=== PATIENT | male | born 1970 | race Caucasian/White ===

== ENCOUNTER 2023-02-06 17:09 | Emergency (ER) | payer MEDICAID, SELFPAY ==
[2023-02-06 17:21] VITALS: BP 125/75; PULSE 78; RESP 20; TEMP 36.6; O2SAT 99; BMI 27.0
--- NOTE | 2023-02-06 17:36 | US_ITS ---
The [address] [address] Patient Name: MYA CALDWELL MRN: [id number] date: 1970 Sex: M Assigned Patient Location: ER Current Patient Location: Accession/Order Number: [id number] Exam Date: 02/06/2023 17:37 Report Date: 02/06/2023 20:42 At the request of: DAYAN HARMON Procedure: US venous doppler LE LT EXAMINATION: US venous doppler LE LT HISTORY: pain, swelling, hx dvt COMPARISON: No relevant comparison available. FINDINGS: REGION: Left lower extremity THROMBI: Nonocclusive thrombus within mid femoral vein. Occlusive thrombus within mid and distal great saphenous vein extending to the foot. COMPRESSIBILITY: Noncompressible segments. FLOW: Areas of decreased flow. OTHER: None. US/US venous doppler LE LT IMPRESSION: 1. Nonocclusive deep vein thrombus within left mid femoral vein. 2. Thrombus within superficial great saphenous vein. Preliminary findings were provided to the emergency department at time of imaging. Electronically authenticated by: BROOKLYNN DIXON Date: 02/06/2023 20:42
[2023-02-06 18:40] LABS: Basophils Absolute Auto 0.1 10^3/uL (0.0-0.1); Basophils Percent Auto 0.5 % (0.2-2.0); Eosinophils Absolute Auto 0.2 10^3/uL (0.0-0.7); Eosinophils Percent Auto 2.2 % (0.9-7.0); Hematocrit 36.7 % (42.0-54.0); Hemoglobin 11.2 g/dL (14.0-18.0); Immature Granulocytes Abs Auto 0.03 10^3/uL (0.00-0.03); Immature Granulocytes Pct Auto 0.3 % (0.0-0.5); Lymphocytes Percent Auto 19.5 % (20.5-60.0); Mean Corpuscular HGB Conc 30.5 g/dL (29.9-35.2); Mean Corpuscular Volume 75.5 fL (80.0-94.0); Mean Platelet Volume 11.7 fL (9.5-13.5); Monocytes Absolute Auto 1.3 10^3/uL (0.3-0.8); Monocytes Percent Auto 12.5 % (1.7-12.0); Neutrophils Absolute Auto 6.5 10^3/uL (1.4-6.5); Platelet Count 253 10^3/uL (150-450); Red Blood Count 4.86 10^6/uL (4.70-6.10); Red Cell Distribution Width 17.9 % (11.0-15.0)
[2023-02-06 18:48] LABS: Anion Gap 9.3; BUN Creatinine Ratio 10.5; Calcium 8.3 mg/dL (8.5-10.1); Carbon Dioxide 27.5 mmol/L (21.0-32.0); Chloride 108 mmol/L (98-107); Estimated GFR (African America >60 (>=60); Estimated GFR (Non-African Ame >60 (>=60); Glucose 110 mg/dL (74-106); Potassium 3.8 mmol/L (3.5-5.1); Sodium 141 mmol/L (136-145)
--- NOTE | 2023-02-06 19:56 | ED_ITS ---
HPI - Extremity Injury (Lower) General Chief Complaint: Extremity Injury, Lower Stated Complaint: blood clot Time Seen by Provider: 02/06/23 17:36 Source: patient Mode of arrival: walk-in Limitations: no limitations History of Present Illness HPI Narrative: past history of recurrent DVTs and past PE. States released from [facility] over a month ago and has not taken coumadin. He was receiving coumadin and Lovenox while in intermediate. He is concerned because his legs are swollen. L>R. No dyspnea or chest pain or light headiness. No nausea or tachycardia. States he has an appointment with his PCP in 3 days Related Data Home Medications Medication Instructions Recorded Confirmed buprenorphine 8 mg-naloxone 2 mg 1 film sublingual Q24H 02/06/23 02/06/23 sublingual film Allergies Allergy/AdvReac Type Severity Reaction Status Date / Time No Known Drug Allergies Allergy Verified 02/06/23 17:20 Review of Systems ROS Status of ROS 10 or more systems reviewed and unremarkable except as noted in history and below PFSH PFS Social History Smoking status: Heavy tobacco smoker Exam Constitutional Vital Signs, click to edit/add: Last Vital Signs Temp 97.8 F 02/06/23 17:21 Pulse 78 02/06/23 17:21 Resp 20 02/06/23 17:21 BP 125/75 H 02/06/23 17:21 Pulse Ox 99 02/06/23 17:21 O2 Del Method Room Air 02/06/23 17:21 Common normals: no apparent distress, oriented x3, no limitations and healthy appearing HENMI Common normals: normocephalic and head/scalp atraumatic Eye Common normals: PERRL, EOMs intact bilaterally and conjunctivae normal Respiratory Common normals: normal respiratory effort, no retractions, no use of accessory muscles and clear to auscultation bilaterally Cardio Common normals: regular rate, regular rhythm, S1 normal heart sound and S2 normal heart sound GI Common normals: Normal to inspection, nondistended, normoactive bowel sounds present, soft to palpation and non-tender Extremity Other: nonpitting edema bilat lower ext. L>R Neuro Common normals: oriented x3, CN's II-XII intact bilaterally, moves all extremities, no focal motor deficits and no sensory deficits noted Psych Appearance: grossly normal Course Vital Signs Vital signs: Vital Signs Temperature 97.8 F 02/06/23 17:21 Pulse Rate 78 02/06/23 17:21 Respiratory Rate 20 02/06/23 17:21 Blood Pressure 125/75 H 02/06/23 17:21 Pulse Oximetry 99 02/06/23 17:21 Oxygen Delivery Method Room Air 02/06/23 17:21 Temperature 97.8 F 02/06/23 17:21 Pulse Rate 78 02/06/23 17:21 Respiratory Rate 20 02/06/23 17:21 Blood Pressure 125/75 H 02/06/23 17:21 Pulse Oximetry 99 02/06/23 17:21 Oxygen Delivery Method Room Air 02/06/23 17:21 MDM - Extremity Injury (Lower) MDM Narrative Medical decision making narrative: patient with past history of recurrent DVTs and past PEs. Has been non compliant with coumadin since leaving [facility] over a month ago. Now presents with worsening swelling of his legs. trace swelling RLE and 1+ swelling LLE. No chest pain or shortness of breath. Venous doppler with non occlusive DVT mid Left femoral vein and non occlusive superficial thrombus within the great saphenous vein. Patient treated with lovenox in the department and coumadin. Discharged home with both and will see his PCP in 3-4 days to manage his anti coagulants. Patient is comfortable with the plan. labs reveal chronic anemia. Patient admits to past history of the same Lab Data Labs: Lab Results 02/06/23 Range/Units 18:27 WBC 10.0 (4.0-11.0) 10^3/uL RBC 4.86 (4.70-6.10) 10^6/uL Hgb 11.2 L (14.0-18.0) g/dL Hct 36.7 L (42.0-54.0) % MCV 75.5 L (80.0-94.0) fL MCH 23.0 L (25.9-34.0) pg MCHC 30.5 (29.9-35.2) g/dL RDW 17.9 H (11.0-15.0) % Plt Count 253 (150-450) 10^3/uL MPV 11.7 (9.5-13.5) fL Neut % (Auto) 65.0 (43.0-75.0) % Lymph % (Auto) 19.5 L (20.5-60.0) % [place] % (Auto) 12.5 H (1.7-12.0) % Eos % (Auto) 2.2 (0.9-7.0) % Baso % (Auto) 0.5 (0.2-2.0) % Neut # (Auto) 6.5 (1.4-6.5) 10^3/uL Lymph # (Auto) 2.0 (1.2-3.8) 10^3/uL [place] # (Auto) 1.3 H (0.3-0.8) 10^3/uL Eos # (Auto) 0.2 (0.0-0.7) 10^3/uL Baso # (Auto) 0.1 (0.0-0.1) 10^3/uL Abs Immat Gran (auto) 0.03 (0.00-0.03) 10^3/uL Imm/Tot Granulo (auto) 0.3 (0.0-0.5) % Sodium 141 (136-145) mmol/L Potassium 3.8 (3.5-5.1) mmol/L Chloride 108 H (98-107) mmol/L Carbon Dioxide 27.5 (21.0-32.0) mmol/L Anion Gap 9.3 BUN 9.0 (7.0-18.0) mg/dL Creatinine 0.86 (0.70-1.30) mg/dL Est GFR ( Amer) >60 (>=60) Est GFR (Non-Af Amer) >60 (>=60) BUN/Creatinine Ratio 10.5 Glucose 110 H (74-106) mg/dL Calcium 8.3 L (8.5-10.1) mg/dL Discharge Plan Discharge Chief Complaint: Extremity Injury, Lower Clinical Impression: Chronic deep vein thrombosis (DVT) of both lower extremities, Chronic anemia Prescriptions / Home Meds: No Action buprenorphine-naloxone 8-2 mg film 1 film sublingual Q24H Instructions: Deep Vein Thrombosis (ED) Additional Instructions: follow up with your doctor Thursday as planned Stand Alone Forms: Portal Instructions Referrals: Physician,Non-Staff, MD [Primary Care Provider] - 1 week
[2023-02-06 20:18] VITALS: RESP 16
[2023-02-06] MEDS: ENOXAPARIN SODIUM 100 MG/ML SYRINGE 150 MG SUBQ (20:24)
[2023-02-06] MEDS: WARFARIN SODIUM 5 MG TABLET PO (20:24)
[2023-02-06 20:27] VITALS: BP 143/92; PULSE 55; RESP 16; O2SAT 100
== END 2023-02-06 20:33 | disposition home or self-care (01) ==
PROVIDERS: Emergency Medicine; Emergency Provider Internal Medicine
DX: I82.512 Chronic embolism and thrombosis of left femoral vein (principal); I82.812 Embolism and thrombosis of superficial veins of left lower extremity; Z91.148 Patient's other noncompliance with medication regimen for other reason; Z86.711 Personal history of pulmonary embolism; Z79.899 Other long term (current) drug therapy; F17.210 Nicotine dependence, cigarettes, uncomplicated; D64.9 Anemia, unspecified
CPT/HCPCS: 36415; 80048; 85025; 85610; 85730; 93971; 96372; 99284

== ENCOUNTER 2023-05-07 16:38 | Emergency (ER) | payer MEDICAID, SELFPAY ==
[2023-05-07 16:52] VITALS: BP 137/78; PULSE 60; RESP 18; TEMP 36.7; O2SAT 98; BMI 24.9
--- NOTE | 2023-05-07 16:59 | US_ITS ---
The [address] [address] Patient Name: MYA CALDWELL MRN: [id number] date: 1970 Sex: M Assigned Patient Location: ER Current Patient Location: ER Accession/Order Number: [id number] Exam Date: 05/07/2023 17:30 Report Date: 05/07/2023 18:58 At the request of: RUDOLPH JAY Procedure: US venous doppler LE RT Right EXAM: US venous doppler LE RT HISTORY: pain, swelling, history of deep vein thrombosis COMPARISON: None. TECHNIQUE: Evaluation of the deep veins of the right lower extremity was performed utilizing B-mode, color flow and spectral analysis. FINDINGS: The visualized vessels comprising the deep venous systems from the common femoral vein through the calf veins demonstrate appropriate compressibility, spontaneous color Doppler flow, and augmentation of flow on spectral Doppler with distal compression. There is mid superficial saphenous vein thrombus in the posterior cough, representing thrombophlebitis. Additional findings: None. US/US venous doppler LE RT IMPRESSION: No sonographic evidence of deep venous thrombosis of the right lower extremity. Mid superficial saphenous vein thrombus in the posterior cough, representing thrombophlebitis. Electronically authenticated by: TOPHER OLMOS Date: 05/07/2023 18:58
--- NOTE | 2023-05-07 17:06 | ED.GENADUL1 ---
HPI - General Adult General Chief complaint: Extremity Injury, Lower Stated complaint: lower extremity pain Time Seen by Provider: 05/07/23 16:52 Source: patient Mode of arrival: walk-in History of Present Illness HPI narrative: 52-year-old male presents for right calf pain and swelling. He is worried about a blood clot. He has a history of deep vein thromboses and he's been taking his Coumadin every other day to make it stretch. No chest pain or shortness breath. He's ready certain that he has a new deep vein thrombosis. Symptoms present for the past few days. Related Data Home Medications Medication Instructions Recorded Confirmed buprenorphine 8 mg-naloxone 2 mg 1 film sublingual Q24H 02/06/23 02/06/23 sublingual film Previous Rx's Medication Instructions Recorded warfarin 5 mg tablet 5 mg PO DAILY #30 tabs 05/07/23 Allergies Allergy/AdvReac Type Severity Reaction Status Date / Time No Known Drug Allergies Allergy Verified 02/06/23 17:20 Review of Systems ROS Narrative A ten point review of systems is negative except as noted above. PFSH PFSH Social History Smoking status: Heavy tobacco smoker Exam Narrative Exam Narrative: Nurses note and vital signs reviewed and patient is not hypoxic. General: The patient appears well and in no apparent distress. Patient is resting comfortably on cart. Skin: Warm, dry, no pallor noted. There is no rash noted. Head: Normocephalic, atraumatic Eye: Normal conjunctiva, no drainage Ears, Nose, Mouth, and Throat: oral mucosa is moist. Nares patent. Cardiovascular: Regular Rate and Rhythm Respiratory: Patient is in no distress, no accessory muscle use, lungs are clear to auscultation, no wheezing, rales or rhonchi Back: non-tender GI: soft and nontender Musculoskeletal: he has swelling in the right calf with palpable mass. Neurological: A&O, normal speech Psychiatric: Cooperative Constitutional Vital Signs, click to edit/add: Last Vital Signs Temp 98.0 F 05/07/23 16:52 Pulse 60 05/07/23 16:52 Resp 18 05/07/23 16:52 BP 137/78 05/07/23 16:52 Pulse Ox 98 05/07/23 16:52 O2 Del Method Room Air 05/07/23 16:52 Course Vital Signs Vital signs: Vital Signs Temperature 98.0 F 05/07/23 16:52 Pulse Rate 60 05/07/23 16:52 Respiratory Rate 18 05/07/23 16:52 Blood Pressure 137/78 05/07/23 16:52 Pulse Oximetry 98 05/07/23 16:52 Oxygen Delivery Method Room Air 05/07/23 16:52 Temperature 98.0 F 05/07/23 16:52 Pulse Rate 60 05/07/23 16:52 Respiratory Rate 18 05/07/23 16:52 Blood Pressure 137/78 05/07/23 16:52 Pulse Oximetry 98 05/07/23 16:52 Oxygen Delivery Method Room Air 05/07/23 16:52 Medical Decision Making MDM Narrative Medical decision making narrative: Superficial thrombophlebitis is identified on the ultrasound. He is prescribed Coumadin and was given referral to PCP. The importance of follow-up was discussed thoroughly. Treatment diagnosis and follow-up were discussed with the patient. Differential Diagnosis Differential Diagnosis: deep vein thrombosis, superficial thrombophlebitis. Discharge Plan Discharge Chief Complaint: Extremity Injury, Lower Clinical Impression: Superficial thrombophlebitis Patient Disposition: Home, Self-Care Time of Disposition Decision: 17:52 Condition: Good Mode of Transportation: Private Vehicle Prescriptions / Home Meds: New warfarin 5 mg tablet 5 mg PO DAILY Qty: 30 0RF No Action buprenorphine-naloxone 8-2 mg film 1 film sublingual Q24H Instructions: Superficial Thrombophlebitis (ED) Stand Alone Forms: Portal Instructions Referrals: Physician,Non-Staff, MD [Primary Care Provider] - 1 week
== END 2023-05-07 18:06 | disposition home or self-care (01) ==
PROVIDERS: Emergency Provider Emergency Medicine
DX: I80.01 Phlebitis and thrombophlebitis of superficial vessels of right lower extremity (principal); Z86.718 Personal history of other venous thrombosis and embolism; Z79.01 Long term (current) use of anticoagulants; Z79.899 Other long term (current) drug therapy; F17.210 Nicotine dependence, cigarettes, uncomplicated
CPT/HCPCS: 93971; 99284

== ENCOUNTER 2023-05-19 15:36 | Outpatient (RCR) | payer MEDICAID, SELFPAY | END 2023-05-26 17:49 | disposition home or self-care (01) | LOC: MM 15:36 | PROVIDERS: Visit Provider Internal Medicine | DX: Z51.81 Encounter for therapeutic drug level monitoring (principal); Z79.01 Long term (current) use of anticoagulants; I26.99 Other pulmonary embolism without acute cor pulmonale | CPT/HCPCS: 85610; G0463 ==

== ENCOUNTER 2023-05-27 00:36 | Outpatient (RCR) | payer MEDICARE, SELFPAY | END 2023-06-25 16:54 | disposition home or self-care (01) | LOC: MM 00:36 | PROVIDERS: PCP Nurse Practitioner Family; Visit Provider Internal Medicine | DX: Z51.81 Encounter for therapeutic drug level monitoring (principal); Z79.01 Long term (current) use of anticoagulants; I82.409 Acute embolism and thrombosis of unspecified deep veins of unspecified lower extremity; Z86.711 Personal history of pulmonary embolism ==

== ENCOUNTER 2023-06-26 09:03 | Outpatient (RCR) | payer MEDICARE, SELFPAY | END 2023-07-24 15:22 | disposition home or self-care (01) | LOC: MM 09:03 | PROVIDERS: PCP Nurse Practitioner Family; Visit Provider Internal Medicine | DX: Z51.81 Encounter for therapeutic drug level monitoring (principal); Z79.01 Long term (current) use of anticoagulants; I82.409 Acute embolism and thrombosis of unspecified deep veins of unspecified lower extremity; I26.99 Other pulmonary embolism without acute cor pulmonale ==

== ENCOUNTER 2023-07-27 00:47 | Outpatient (RCR) | payer MEDICAID, SELFPAY | END 2023-08-26 15:58 | disposition home or self-care (01) | LOC: MM 00:47 | PROVIDERS: PCP Nurse Practitioner Family; Visit Provider Internal Medicine | DX: Z51.81 Encounter for therapeutic drug level monitoring (principal); Z79.01 Long term (current) use of anticoagulants; Z86.711 Personal history of pulmonary embolism | CPT/HCPCS: 85610; G0463 ==

== ENCOUNTER 2023-08-17 16:33 | Outpatient (OUT) | payer MEDICAID, SELFPAY ==
--- OUTSIDE RECORDS SUMMARY | 2023-08-17 16:36 | XMS_ITS | CCD ---
Author Name Unknown Address [address] # [place] [address] Organization [facility] Care Team Providers Care Gi Technician Name Role Phone FABI BRAYAN Unavailable Unavailable FABI PETER Unavailable Unavailable ZELALEM HERNANDEZ Unavailable Unavailable BRAYAN DUNLAP Unavailable Unavailable DO Anam Gnosticism Referring Provider [phone] MD Sofie Sparks Attending Provider [phone] [facility] Primary Care Provider John Peguero Unavailable Nacny Rose Unavailable [facility] Primary Care Provider [facility] Referring Provider SUKHWINDER Hernandez Attending Provider Mast, DO Kasi Attending Provider DO Jeremiah Mendieta Referring Provider [phone] [facility] Primary Care Provider [phone] MD Jose Zavala Jr Emergency Provider None, None Primary Care Provider Unavailabl e SEARS, CHRISTOPHER D Referring Unavailable NONE, NONE Primary Care Unavailable SEARS, CHRISTOPHER D Referring Unavailable NONE, NONE Primary Care Unavailable SEARS, CHRISTOPHER D Referring Unavailable NONE, NONE Primary Care Unavailable SEARS, CHRISTOPHER D Referring Unavailable NONE, NONE Primary Care Unavailable SEARS, CHRISTOPHER D Referring Unavailable NONE, NONE Primary Care Unavailable SEARS, CHRISTOPHER D Referring Unavailable NONE, NONE Primary Care Unavailable Mast, Kasi Attending Unavailable Mast, Kasi Admitting Unavailable Stanley Garcia Primary Care Unavailable [facility] Primary Care Unavaila ble Mast, Kasi Admitting Unavailable Jeremiah Mendieta Referring Unavailable Mast, Kasi Attending Unavailable [facility] Primary Care Unavaila Yesi Hutchison Attending Unavail able Yesi Hernandez Admitting Unavail able [facility] Referring Unavaila ble [facility] Primary Care Unavaila Jose Martinez Jr Attending Unavailable Jose Zavala Jr Admitting Unavailable Sofie Sparks Attending Unavailable [facility] Primary Care Unavaila praveena Sofie Sparks Admitting Unavailable Jeremiah Mendieta Referring Unavailable Erica Montaño Unavailable Allergies Allergy Classification Reported Allergen(s) Allergy Type Date of Onset Reaction(s) Facility (1 source) buPROPion Drug Allergy 08-12-2022 [facility] Repository Medications Current Medications Medication Drug Class(es) Dates Sig (Normalized) Sig (Original) apixaban 5 mg oral tablet (2 sources) Factor Xa Inhibitor Start: 08-12-2022 take 1 tablet by mouth twice daily Apixaban (Eliquis) 5 mg Tablet Active 5 MG PO Twice daily August 12, 2022 1:00am aspirin 81 mg oral tablet (3 sources) Platelet Aggregation Inhibitor, Nonsteroidal Anti-inflammatory Drug take 1 tablet by mouth once daily aspirin 81 MG tablet Take 81 mg by mouth daily. 0 Active buprenorphine 8 mg / naloxone 2 mg sublingual film (7 sources) Partial Opioid Agonist, Opioid Antagonist Start: 05-23-2021 Buprenorphine-Na loxone Active 1.25 FILM SUBLINGUAL Daily May 23, 2021 12:00am Buprenorphine HC l-Naloxone HCl 8-2 MG DISSOLVE 1 (ONE) and ONE-HALF film UNDER THE TONGUE DAILY Sublingual for 28 Days Active Buprenorphine HCl-Naloxone HCl 8-2 MG (2 sources) Buprenorphine HCl-Naloxone HCl 8-2 MG DISSOLVE 1 (ONE) and ONE-HALF film UNDER THE TONGUE DAILY Sublingual for 28 Days Active 24 hr buPROPion hydrochloride 150 mg extended release oral tablet (2 sources) Aminoketone take 1 tablet by mouth once daily in the morning buPROPion HCl ER (XL) 150 MG TAKE 1 TABLET BY MOUTH EVERY MORNING Oral for 30 Days Active Compression stockings, 30-40mmHg, calf 30-40mmHg (2 sources) Compression stockings, 30-40mmHg, calf 30-40mmHg externally daily as directed for 3 days Active escitalopram 20 mg oral tablet (8 sources) Serotonin Reuptake Inhibitor Start: 08-11-19 23 take 1 tablet by mouth once daily Escitalopram Oxalate (Lexapro) 20 mg Tablet Active 20 MG PO Daily August 11, 2022 1:00am furosemide 20 mg oral tablet (7 sources) Loop Diuretic Start: 05-23-20 21 take 20 mg by mouth once daily Furosemide Active 20 MG PO Daily May 23, 2021 12:00am take 1 tablet by mouth once alisson y Furosemide 40 MG TAKE 1 TABLET BY MOUTH EVERY DAY Oral for 30 Days Active gabapentin 600 mg oral tablet (9 sources) Anti-epileptic Agent Start: 05-23-2021 take 800 mg by mouth three times daily Gabapentin Active 800 MG PO Three times daily May 23, 2021 12:00am Start: 05-23-2021 take 600 mg by mouth three times daily Gabapentin Active 600 MG PO Three times daily May 22, 2021 11:00pm take 1 tablet by toshia th three times daily Gabapentin 800 MG TAKE 1 TABLET BY MOUTH THREE TIMES DAILY Oral for 30 days Active levothyroxine sodium 0.05 mg oral tablet (8 sources) l-Thyroxine Start: 08-11-2022 take 50 ug by mouth once daily Levothyroxine Active 50 MCG PO Daily August 11, 2022 1:00am take 1 tablet by toshia th once daily in the morning Levothyroxine Sodium 50 MCG TAKE 1 TABLE T BY MOUTH IN THE MORNING ON AN EMPTY STOMACH DAILY Oral for 30 days Active lisinopril 10 mg oral tablet (9 sources) Angiotensin Converting Enzyme Inhibitor Start: 05-23-2021 take 20 mg by mouth once daily Lisinopril Active 20 MG PO Daily May 23, 2021 12:00am Start: 05-23-2021 take 10 mg by mouth once daily Lisinopril Active 10 MG PO Daily May 22, 2021 11:00pm take 1 tablet by toshia th once daily Lisinopril 20 MG TAKE 1 TABLET BY MOUTH EVERY DAY Oral for 30 days Active nicotine 2 mg chewing gum (8 sources) Cholinergic Nicotinic Agonist Start: 08-11-2022 Nicotine (Polacrilex ) (Nicorette) 2 mg Gum Active 2 MG BUCCAL Q1H August 11, 2022 1:00am Nicotine Polacri gabriela 2 MG chew 1 piece for 30 minute as needed up to 24 times a day. Mouth/Throat for 7 Days Active omeprazole 40 mg delayed release oral capsule (8 sources) Proton Pump Inhibitor Start: 08-11-2022 take 40 mg by mouth once daily Omeprazole Active 40 MG PO Daily August 11, 2022 1:00am predniSONE 20 mg oral tablet (3 sources) Start: 11-03-2012 predniSONE (DELTASONE) 20 MG tablet Take two tabs tonight with food. Then one tab three times daily with food till gone. 15 tablet 0 11/03/2012 Active Completed/Discontinued Medications Medication Drug Class(es) Dates Sig (Normalized) Sig (Original) pantoprazole 40 mg delayed release oral tablet (3 sources) Proton Pump Inhibitor Start: 05-23-2021 End: 08-11-2022 take 40 mg by mouth once daily Pantoprazole Discontinued 40 MG PO Daily May 23, 2021 12:00am August 11, 2022 4:24pm potassium chloride 20 meq extended release oral tablet (7 sources) Start: 05-23-2021 End: 08-11-2022 take 1 tablet by mouth twice daily Potassium Chloride (K-Tab) 20 mEq tablet extended release Discontinued 20 MEQ PO Twice daily 14 May 23, 2021 12:00am August 11, 2022 4:25pm take 1 tablet by toshia th once daily at mealtime Potassium Chloride ER 20 MEQ TAKE 1 TABL ET BY MOUTH EVERY DAY WITH FOOD Oral for 30 Days Active rivaroxaban 15 mg oral tablet (3 sources) Factor Xa Inhibitor Start: 05-23-2021 End: 08-11-2022 take 1 tablet by mouth twice daily at mealtime Rivaroxaban (Xarelto) 15 mg tablet Discontinued 15 MG PO Twice daily 42 May 23, 2021 12:00am August 11, 2022 4:24pm must administer with a meal/food traMADol HCl unknown (4 sources) take 1 tablet by mouth every six hours as needed Vitamin D unknown (4 sources) take 1 tablet by mouth once daily warfarin sodium 5 mg oral tablet (16 sources) Vitamin K Antagonist Start: 08-12-2022 End: 09-24-2022 take 5 mg by mouth once daily Warfarin Discontinued 5 MG PO Daily August 12, 2022 4:33pm September 24, 2022 5:02pm take 1 tablet by mouth two times weekly Coumadin 5 5 MG 1 tablet Orally Two times a Week Active Wellbutrin unknown (4 sources) take 2 tablets by mouth three ti mes daily Problems Active Problems Problem Classification Problem Date Documented Da te Episodic/Chronic Alcohol-related disorders (1 source) Alcohol intoxication; Translations: [Alcohol use, unspecified with intoxication, unspecified] 11-15-2022 Episodic Anxiety disorders (3 sources) Anxiety disorder, unspecified; Translations: [Anxiety] Onset: 03-24-2022 Chronic Essential hypertension (3 sources) Essential (primary) hypertension; Translations: [Essential hypertension] Onset: 03-24-2022 Chronic Fluid and electrolyte disorders (3 sources) Hypokalemia; Translations: [Hypokalemia] 05-23-2021 Episodic Mood disorders (2 sources) Recurrent major depressive episodes, moderate ; Translations: [Major depressive disorder, recurrent, moderate] Chronic Other aftercare (1 source) Long-term current use of anticoagulant; Translations: [detention (current) use of anticoagulants] 11-15-2022 Episodic Other aftercare (2 sources) terminal press operator (current) use of anticoagulants; Translations: [terminal press operator (current) use of anticoagulants] Onset: 12-19-2022 Episodic Other aftercare (2 sources) Anticoagulant effect; Translations: [detention (current) use of anticoagulants] Episodic Other connective tissue disease (4 sources) Pain in right lower leg; Translations: [PAIN IN RIGHT LOWER LEG] Onset: 05-14-2018 Episodic Other gastrointestinal disorders (1 source) Celiac disease; Translations: [Celiac disease] Onset: 03-24-2022 Chronic Other injuries and conditions due to external causes (1 source) Minor head injury; Translations: [Unspecified injury of head, initial encounter] 11-15-2022 Episodic Other nervous system disorders (1 source) Chronic pain syndrome; Translations: [Chronic pain syndrome] Onset: 03-24-2022 Chronic Other nervous system disorders (2 sources) Neuropathy; Translations: [Polyneuropathy, unspecified] Chronic Other nervous system disorders (1 source) Polyneuropathy, unspecified Chronic Other screening for suspected conditions (not mental disorders or infectious disease) (2 sources) Abnormal coagulation profile; Translations: [Abnormal coagulation profile] Onset: 12-15-2022 Episodic Other skin disorders (1 source) Localized swelling, mass and lump, right lower limb; Translations: [LOC SWELL MASS LUMP RT LOWER LIMB] Onset: 05-20-2018 Episodic Phlebitis; thrombophlebitis and thromboembolism (1 source) Chronic embolism and thrombosis of left popliteal vein; Translations: [Chronic embolism and thrombosis of left popliteal vein] Onset: 08-12-2022 Chronic Substance-related disorders (7 sources) Smoker; Translations: [Nicotine dependence, unspecified, uncomplicated] 05-23-2021 Chronic Superficial injury; contusion (2 sources) Abrasion, knee; Translations: [Abrasion, right knee, initial encounter] 11-15-2022 Episodic Thyroid disorders (4 sources) Thyroid nodule; Translations: [Nontoxic single thyroid nodule] Chronic Unclassified (2 sources) Other persistent atrial fibrillation; Translations: [Other persistent atrial fibrillation] Onset: 2022 Unclassified (1 source) Other specified injuries of head, initial encounter; Translations: [Other specified injuries of head, initial encounter] Onset: 11-15-2022 Unclassified (1 source) Opioid use, unspecified, uncomplicated; Translations: [Opioid use, unspecified, uncomplicated] Onset: 03-24-2022 Past or Other Problems Problem Classification Problem Date Documented Da te Episodic/Chronic Other non-traumatic joint disorders (1 source) Pain in unspecified joint; Translations: [Pain in unspecified joint] Onset: 03-24-2022 Episodic Phlebitis; thrombophlebitis and thromboembolism (10 sources) Deep venous thrombosis; Translations: [Acute embolism and thrombosis of unspecified deep veins of unspecified lower extremity] Onset: 03-24-2022 05-23-2021 Episodic Pulmonary heart disease (4 sources) Pulmonary embolism; Translations: [Other pulmonary embolism without acute cor pulmonale] Onset: 08-12-2022 05-23-2021 Episodic Residual codes; unclassified (1 source) Tobacco use; Translations: [Tobacco use] Onset: 03-24-2022 Episodic Results Test Name Value Interpretation Reference Range Facility PTon 12-26-2022 INR Coag (PPP) [Relative time] 1.9 {INR} Normal [facility] Comment on above: Result Comment: Therapeutic Range: Moderate Anticoagulant Intensity: INR = 2.0-3.0 High Anticoagulant Intensity: INR = 2.5-3.5 Performed By: #### P T #### [facility] [address] [place] [address] Ceramic Painter: Mando Hernandez MD PT Coag (PPP) [Time] 21.7 s High 11.9-14.8 [facility] Comment on above: Performed By: #### P T #### [address] [place] [address] Ceramic Painter: Mando Hernandez MD Protime-INRon 12-26-2022 INR Coag (PPP) [Relative time] 1.9 {INR} [facility] Comment on above: Therapeutic Range: Moderate Anticoagulant Intensity: INR = 2.0-3.0 High Anticoagulant Intensity: INR = 2.5-3.5 Interpretation and review of laboratory results Abnormal [facility] PT Coag (PPP) [Time] 21.7 s High [facility] PTon 12-25-2022 INR Coag (PPP) [Relative time] 1.5 {INR} Normal [facility] Comment on above: Result Comment: Therapeutic Range: Moderate Anticoagulant Intensity: INR = 2.0-3.0 High Anticoagulant Intensity: INR = 2.5-3.5 Performed By: #### P T #### [address] [place] [address] Ceramic Painter: Mando Hernandez MD PT Coag (PPP) [Time] 18.4 s High 11.9-14.8 [facility] Comment on above: Performed By: #### P T #### [facility] [address] [place] [address] [place] [address] Ceramic Painter: Mando Hernandez MD Protime-INRon 12-25-2022 INR Coag (PPP) [Relative time] 1.5 {INR} [facility] Comment on above: Therapeutic Range: Moderate Anticoagulant Intensity: INR = 2.0-3.0 High Anticoagulant Intensity: INR = 2.5-3.5 Interpretation and review of laboratory results Abnormal [facility] PT Coag (PPP) [Time] 18.4 s High [facility] PTon 12-22-2022 INR Coag (PPP) [Relative time] 1.5 {INR} Normal [facility] Comment on above: Result Comment: Therapeutic Range: Moderate Anticoagulant Intensity: INR = 2.0-3.0 High Anticoagulant Intensity: INR = 2.5-3.5 Performed By: #### P T #### [facility] [address] [place] [address] Ceramic Painter: Mando Hernandez MD PT Coag (PPP) [Time] 18.3 s High 11.9-14.8 [facility] Comment on above: Performed By: #### P T #### [facility] [address] [place] [address] Ceramic Painter: Mando Hernandez MD Protime-INRon 12-22-2022 INR Coag (PPP) [Relative time] 1.5 {INR} [facility] Comment on above: Therapeutic Range: Moderate Anticoagulant Intensity: INR = 2.0-3.0 High Anticoagulant Intensity: INR = 2.5-3.5 Interpretation and review of laboratory results Abnormal [facility] PT Coag (PPP) [Time] 18.3 s High [facility] PTon 12-19-2022 INR Coag (PPP) [Relative time] 1.7 {INR} Normal [facility] Comment on above: Result Comment: Therapeutic Range: Moderate Anticoagulant Intensity: INR = 2.0-3.0 High Anticoagulant Intensity: INR = 2.5-3.5 Performed By: #### P T #### [facility] [address] [place] [address] Ceramic Painter: Mando Heranndez MD PT Coag (PPP) [Time] 19.8 s High 11.9-14.8 [facility] Comment on above: Performed By: #### P T #### [facility] [address] [place] [address] Ceramic Painter: Mando Hernandez MD Specimen Rejectionon 023 Reason for rejection Unable to perform t esting: Specimen hemolyzed. Normal [facility] Comment on above: Performed By: #### R EJEC #### [facility] [address] [place] [address] Ceramic Painter: Mando Hernandez MD Source of sample .BLOOD Normal [facility] Comment on above: Performed By: #### R EJEC #### [facility] [address] [place], [facility] Ceramic Painter: Mando Hernandez MD Test ordered PT Normal [facility] Comment on above: Performed By: #### R EJEC #### [facility] [address] [place] [address] Ceramic Painter: Mando Hernandez MD PTon INR Coag (PPP) [Relative time] 1.2 {INR} Normal [facility] Comment on above: Result Comment: Therapeutic Range: Moderate Anticoagulant Intensity: INR = 2.0-3.0 High Anticoagulant Intensity: INR = 2.5-3.5 Performed By: #### P T #### [facility] [address] [place], [facility] Ceramic Painter: Mando Hernandez MD PT Coag (PPP) [Time] 14.8 s Normal 11.9-14.8 [facility] Comment on above: Performed By: #### P T #### [facility] [address] [place], [facility] Ceramic Painter: Mando Hernandez MD PTon 2022 INR Coag (PPP) [Relative time] 1.0 {INR} Normal [facility] Comment on above: Result Comment: Therapeutic Range: Moderate Anticoagulant Intensity: INR = 2.0-3.0 High Anticoagulant Intensity: INR = 2.5-3.5 Performed By: #### P T #### [facility] [address] [place], [facility] Ceramic Painter: Mando Hernandez MD PT Coag (PPP) [Time] 13.2 s Normal 11.9-14.8 [facility] Comment on above: Performed By: #### P T #### [facility] [address] [place] [address] Ceramic Painter: Mando Hernandez MD CT cervical spine wo conon 0 11-15-2022 CT cervical spine wo con [facility] [place] [address] [place] [address] [address] Scan Report Signed Patient: Mya Caldwell MR#: [id number] 33 : 1970 Acct:[id number] Age/Sex: 51 / M ADM Date: 11/15/22 Loc: ER Room: Type: [facility] ER Attending Dr: Copies to: Jose Zavala Jr, MD Ordering Provider: Jose Zavala Jr, MD Date of Service: 11/15/22 CT/CT cervical spine wo con: fall, hit head, intox ([id number]) CT/CT head/brain wo con: fall, hit head, on coumadin CLINICAL DATA: Patient fell and hit head. Blood thinners. CT BRAIN WITHOUT CONTRAST: COMPARISON: None TECHNIQUE: Contiguous axial unenhanced images were obtained through the brain. This CT exam was performed using one or more following dose reduction techniques: Automated exposure control, adjustment of the mA and/or kV according to patient size, or use of iterative reconstruction technique. FINDINGS: The ventricles are within normal limits for size and position. There are no areas of abnormal attenuation. There is no hemorrhage, mass effect or extra-axial collections. The calvarium is intact. CT/CT head/brain wo con IMPRESSION: NO ACUTE INTRACRANIAL TRAUMA. CT CERVICAL SPINE WITHOUT CONTRAST WITH 3D RECONSTRUCTIONS: COMPARISON: None TECHNIQUE: Spiral axial unenhanced images were obtained through the cervical spine. Sagittal, coronal and 3D volume-rendered reconstructions were also reviewed. This CT exam was performed using one or more following dose reduction techniques: Automated exposure control, adjustment of the mA and/or kV according to patient size, or use of iterative reconstruction technique. FINDINGS: There is levoscoliotic curvature. Alignment is maintained in the sagittal plane. No fractures are identified. There is slight disc space narrowing at the cervicothoracic junction. There are small endplate spurs The atlantoaxial relationship is maintained. No prevertebral soft tissue swelling is seen. There is scarring at the lung apices. IMPRESSION: NO ACUTE BONY INJURY. Impression dictated by: Valentine Beard M.D.11/15/2022 9:17 AM Dictation Location: [place] [address] Transcribed By: [facility] 11/15/22916 Dictated By: Valentine Beard MD 11/15/22909 Signed By: 11/15/22916 [facility] XR knee BI 4Von 11-15-2022 XR knee BI 4V [facility] [place] [address] [place] [address] XRay Report Signed Patient: Mya Caldwell MR#: [id number] [birth year] : 1970 Acct:[id number] Age/Sex: 51 / M ADM Date: 11/15/22 Loc: ER Room: Type: [facility] ER Attending Dr: Copies to: Jose Zavala Jr, MD Ordering Provider: Jose Zavala Jr, MD Date of Service: 11/15/22 XR/XR knee BI 4V: falls, B knee pain BILATERAL KNEES - 4 views each CLINICAL HISTORY: Patient fell and has pain at the right medial knee AP, lateral and both oblique views of both knees were obtained. No fracture, dislocation or bony destruction is identified. There is no disproportionate joint space narrowing. There is no prominent hypertrophy. There is no significant knee effusion or soft tissue swelling. XR/XR knee BI 4V IMPRESSION: NO ACUTE BONY INJURY. Impression dictated by: Valentine Beard M.D.11/15/2022 9:10 AM Dictation Location: [place] [address] Transcribed By: [facility] 11/15/22909 Dictated By: Valentine Beard MD 11/15/22907 Signed By: 11/15/22909 [facility] Acanthocytes [Presence] in B lood by Light microscopyOrdered By: Kasi Zavala/Daphne on 11-04-2022 Acanthocytes LM Ql (Bld) [facility] Anisocytosis LM Ql (Bld)Orde red By: Kasi Zavala/Sanjayor on 11-04-2022 Anisocytosis Ql (Bld) Moderate [facility] Basophils Auto (Bld) [#/Vol] Ordered By: Kasi Mast/Preceptor on 11-04-2022 Basophils (Bld) [#/Vol] N/A [facility] Basophils/100 WBC Auto (Bld) Ordered By: Kasi Mast/Preceptor on 11-04-2022 Basophils/100 WBC (Bld) N/A [facility] Basophils/100 WBC Manual cnt (Bld)Ordered By: Kasi Mast/Preceptor on 11-04-2022 Basophils/100 WBC (Bld) 1 % 0-2 [facility] Diff and CBCon 11-04-2022 Acanthocytes Slight Normal [facility] Comment on above: Order Comment: Reaso n for Exam Anemia, unspecified type Performed By: #### D IFF CBC, [id number], TSH3, T3T, T4F #### [facility] [address] [place] [id number] [facility] Anisocytosis Ql (Bld) Moderate Normal [facility] Comment on above: Order Comment: Reaso n for Exam Anemia, unspecified type Performed By: #### D IFF CBC, [id number], TSH3, T3T, T4F #### [facility] [address] [place] [address] [place] Basophils/100 WBC (Bld) 1 % Normal 0-2 [facility] Comment on above: Order Comment: Reaso n for Exam Anemia, unspecified type Performed By: #### D IFF CBC, [id number], TSH3, T3T, T4F #### [facility] [address] [place] [address] [place] Eosinophils/100 WBC (Bld) 2 % Normal 1-3 [facility] Comment on above: Order Comment: Reaso n for Exam Anemia, unspecified type Performed By: #### D IFF CBC, [id number], TSH3, T3T, T4F #### [facility] [address] [place] [address] [place] Erythrocyte distribution width (RBC) [Ratio] 25.4 % High 12.0-14.8 [facility] Comment on above: Order Comment: Reaso n for Exam Anemia, unspecified type Performed By: #### D IFF CBC, [id number], TSH3, T3T, T4F #### [facility] [address] Giant Platelet Tally 5 /100{WBC} Normal [facility] Comment on above: Order Comment: Reaso n for Exam Anemia, unspecified type Performed By: #### D IFF CBC, [id number], TSH3, T3T, T4F #### [facility] [address] [place] [address] Hematocrit (Bld) [Volume fraction] 35.3 % Low 38.8-50.0 [facility] Comment on above: Order Comment: Reaso n for Exam Anemia, unspecified type Performed By: #### D IFF CBC, [id number], TSH3, T3T, T4F #### [facility] [address] [place] [address] Hemoglobin (Bld) [Mass/Vol] 11.1 g/dL Low 13.0-17.0 [facility] Comment on above: Order Comment: Reaso n for Exam Anemia, unspecified type Performed By: #### D IFF CBC, [id number], TSH3, T3T, T4F #### [facility] [address] [place] [address] Hypochromasia Marked Normal [facility] Comment on above: Order Comment: Reaso n for Exam Anemia, unspecified type Performed By: #### D IFF CBC, [id number], TSH3, T3T, T4F #### [place] [address] [place] Lymphocytes/100 WBC (Bld) 27 % Normal 18-42 [facility] Comment on above: Order Comment: Reaso n for Exam Anemia, unspecified type Performed By: #### D IFF CBC, [id number], TSH3, T3T, T4F #### [facility] [address] [place] [address] MCH (RBC) [Entitic mass] 24.5 pg Low 27.5-35.2 [facility] Comment on above: Order Comment: Reaso n for Exam Anemia, unspecified type Performed By: #### D IFF CBC, [id number], TSH3, T3T, T4F #### [facility] [address] [place] [address] MCV (RBC) [Entitic vol] 77.8 fL Low 83.5-101 [facility] Comment on above: Order Comment: Reaso n for Exam Anemia, unspecified type Performed By: #### D IFF CBC, [id number], TSH3, T3T, T4F #### [facility] [address] [place] [address] Mean Corpuscular HGB Conc 31.4 g/dL Low 32.5-35.6 [facility] Comment on above: Order Comment: Reaso n for Exam Anemia, unspecified type Performed By: #### D IFF CBC, [id number], TSH3, T3T, T4F #### [facility] [address] [place] [address] Microcytosis Slight Normal [facility] Comment on above: Order Comment: Reaso n for Exam Anemia, unspecified type Performed By: #### D IFF CBC, [id number], TSH3, T3T, T4F #### [facility] [address] [place] [address] [place] Monocytes/100 WBC (Bld) 10 % Normal 2-11 [facility] Comment on above: Order Comment: Reaso n for Exam Anemia, unspecified type Performed By: #### D IFF CBC, [id number], TSH3, T3T, T4F #### [facility] [address] [place] [address] Ovalocytes Slight Normal [facility] Comment on above: Order Comment: Reaso n for Exam Anemia, unspecified type Performed By: #### D IFF CBC, [id number], TSH3, T3T, T4F #### [facility] [address] [place] [address] Platelet Estimate Decreased Normal Normal [facility] Comment on above: Order Comment: Reaso n for Exam Anemia, unspecified type Performed By: #### D IFF CBC, [id number], TSH3, T3T, T4F #### [facility] [address] [place] [id number] [facility] Platelet mean volume (Bld) [Entitic vol] 8.7 fL Normal 6.6-10.1 [facility] Comment on above: Order Comment: Reaso n for Exam Anemia, unspecified type Performed By: #### D IFF CBC, [id number], TSH3, T3T, T4F #### [facility] [address] [place] [address] Platelet Morphology Normal Normal Normal [facility] Comment on above: Order Comment: Reaso n for Exam Anemia, unspecified type Result Comment: PERF ORMED BY: [place] [address] PATHOLOGIST DISPENSING LEAD JONAH AMEZCUA M.D. Performed By: #### D IFF CBC, [id number], TSH3, T3T, T4F #### [address] Platelets (Bld) [#/Vol] 148 10*3/uL Low 150-450 [facility] Comment on above: Order Comment: Reaso n for Exam Anemia, unspecified type Performed By: #### D IFF CBC, [id number], TSH3, T3T, T4F #### [facility] [address] [place], [place] [id number] [facility] Poikilocytosis Slight Normal [facility] Comment on above: Order Comment: Reaso n for Exam Anemia, unspecified type Performed By: #### D IFF CBC, [id number], TSH3, T3T, T4F #### [place] [id number] [facility] RBC (Bld) [#/Vol] 4.54 10*6/uL Normal 3.90-5.60 [facility] Comment on above: Order Comment: Reaso n for Exam Anemia, unspecified type Performed By: #### D IFF CBC, [id number], TSH3, T3T, T4F #### [facility] [address] [place] [address] [place] Schistocytes Slight Normal [facility] Comment on above: Order Comment: Reaso n for Exam Anemia, unspecified type Performed By: #### D IFF CBC, [id number], TSH3, T3T, T4F #### [facility] [address] [place] [address] [place] Segmented neutrophils/100 WBC (Bld) 61 % Normal 50-70 [facility] Comment on above: Order Comment: Reaso n for Exam Anemia, unspecified type Performed By: #### D IFF CBC, [id number], TSH3, T3T, T4F #### [facility] [address] [place] [address] [place] Target Cells Slight Normal [facility] Comment on above: Order Comment: Reaso n for Exam Anemia, unspecified type Performed By: #### D IFF CBC, [id number], TSH3, T3T, T4F #### [facility] [address] [place] [address] [place] WBC (Bld) [#/Vol] 4.0 10*3/uL Low 4.1-10.5 [facility] Comment on above: Order Comment: Reaso n for Exam Anemia, unspecified type Performed By: #### D IFF CBC, [id number], TSH3, T3T, T4F #### [facility] [address] [place] [address] [place] Eosinophils Auto (Bld) [#/Vo l]Ordered By: Kasi Mast/Preceptor on 11-04-2022 Eosinophils (Bld) [#/Vol] N/A [facility] Eosinophils/100 WBC Auto (Bl d)Ordered By: Kasi Mast/Preceptor on 11-04-2022 Eosinophils/100 WBC (Bld) N/A [facility] Eosinophils/100 WBC Manual c nt (Bld)Ordered By: Kasi Mast/Preceptor on 11-04-2022 Eosinophils/100 WBC (Bld) 2 % 1-3 [facility] Erythrocyte distribution wid th Auto (RBC) [Ratio]Ordered By: Kasi Zavala/Preceptor on 11-04-2022 Erythrocyte distribution width (RBC) [Ratio] 25.4 % 12.0-14.8 [facility] Folate [Mass/volume] in Seru m or PlasmaOrdered By: Kasi Zavala/Preceptor on 11-04-2022 Folate [Mass/Vol] 2.8 ng/mL >5.9 [facility] Comment on above: Folate reference ran ge: >5.9 ng/mlThe WHO technical consultation on folate and vitamin [id number] has determined that folate concentrations lessthan 4 ng/ml are considered deficient. Free T4 (Free Thyroxine)on 0 11-04-2022 Free T4 [Mass/Vol] 0.68 ng/dL Normal 0.61-1.12 [facility] Comment on above: Order Comment: Reaso n for Exam Folate deficiency Reason for Exam Hypothyroidism, unspecified type PT IS NON FASTING Performed By: #### D IFF CBC, [id number], TSH3, T3T, T4F #### [facility] [address] Giant platelets/100 leukocyt es [Ratio] in Blood by Manual countOrdered By: Kasi Zavala/Preceptor on 11-04-2022 Giant platelets/100 WBC Manual cnt (Bld) [Ratio] 5 /100{WBC} [facility] Hematocrit Auto (Bld) [Volum e fraction]Ordered By: Kasi Zavala/Preceptor on 11-04-2022 Hematocrit (Bld) [Volume fraction] 35.3 % 38.8-50.0 [facility] Hemoglobin [Mass/volume] in BloodOrdered By: Kasi Zavala/Preceptor on 11-04-2022 Hemoglobin (Bld) [Mass/Vol] 11.1 g/dL 13.0-17.0 [facility] Hypochromia LM Ql (Bld)Order ed By: Kasi Zavala/Preceptor on 11-04-2022 Hypochromia Ql (Bld) Marked [facility] - CoagulationOrde red By: Kasi Zavala on 11-04-2022 PT Coag (PPP) [Time] 27.0 s 9.0-12.9 [facility] Leukocytes [#/volume] correc aria for nucleated erythrocytes in Blood by Automated counOrdered By: Kasi Mast/Preceptor on 11-04-2022 WBC corrected for nucl RBC Auto (Bld) [#/Vol] 4.0 10*3/uL 4.1-10.5 [facility] Lymphocytes Auto (Bld) [#/Vo l]Ordered By: Kasi Mast/Preceptor on 11-04-2022 Lymphocytes (Bld) [#/Vol] N/A [facility] Lymphocytes/100 WBC Auto (Bl d)Ordered By: Kasi Mast/Preceptor on 11-04-2022 Lymphocytes/100 WBC (Bld) N/A [facility] Lymphocytes/100 WBC Manual c nt (Bld)Ordered By: Kasi Mast/Preceptor on 11-04-2022 Lymphocytes/100 WBC (Bld) 27 % 18-42 [facility] MCH Auto (RBC) [Entitic mass ]Ordered By: Kasi Mast/Preceptor on 11-04-2022 MCH (RBC) [Entitic mass] 24.5 pg 27.5-35.2 [facility] MCHC Auto (RBC) [Mass/Vol]Or dered By: Kasi Mast/Preceptor on 11-04-2022 MCHC (RBC) [Mass/Vol] 31.4 g/dL 32.5-35.6 [facility] MCV Auto (RBC) [Entitic vol] Ordered By: Kasi Mast/Preceptor on 11-04-2022 MCV (RBC) [Entitic vol] 77.8 fL 83.5-101 [facility] Microcytes LM Ql (Bld)Ordere d By: Kasi Mast/Preceptor on 11-04-2022 Microcytes Ql (Bld) Slight [facility] Monocytes Auto (Bld) [#/Vol] Ordered By: Kasi Mast/Preceptor on 11-04-2022 Monocytes (Bld) [#/Vol] N/A [facility] Monocytes/100 WBC Auto (Bld) Ordered By: Kasi Mast/Preceptor on 11-04-2022 Monocytes/100 WBC (Bld) N/A [facility] Monocytes/100 WBC Manual cnt (Bld)Ordered By: Kasi Mast/Preceptor on 11-04-2022 Monocytes/100 WBC (Bld) 10 % 09-06 [facility] Neutrophils Auto (Bld) [#/Vo l]Ordered By: Kasi Mast/Preceptor on 11-04-2022 Neutrophils (Bld) [#/Vol] N/A [facility] Neutrophils/100 WBC Auto (Bl d)Ordered By: Kasi Mast/Preceptor on 11-04-2022 Neutrophils/100 WBC (Bld) N/A [facility] Nucleated erythrocytes [Pres ence] in Blood by Automated countOrdered By: Kasi Mast/Preceptor on 11-04-2022 Nucleated RBC Auto Ql (Bld) N/A [facility] Ovalocyte detectionOrdered B y: Kasi Mast/Preceptor on 11-04-2022 Ovalocytes LM Ql (Bld) Slight [facility] Platelet adequacy [Presence] in Blood by Light microscopyOrdered By: Kasi Mast/Preceptor on 11-04-2022 Platelets LM Ql (Bld) Decreased Normal [facility] Platelet mean volume Auto (B ld) [Entitic vol]Ordered By: Kasi Mast/Preceptor on 11-04-2022 Platelet mean volume (Bld) [Entitic vol] 8.7 fL 6.6-10.1 [facility] Platelet morphology finding [Identifier] in BloodOrdered By: Kasi Mast/Preceptor on 11-04-2022 Platelet morphology finding Nom (Bld) Normal Normal [facility] Platelet poor plasma interna tional normalized ratio (INR) by coagulation assay (relatOrdered By: Kasi Zavala on 11-04-2022 INR Coag (PPP) [Relative time] 2.4 {INR} [facility] Comment on above: INR Therapeutic Rang e A) Pre- and Peroperative OAT started two weeks before surgery. NOT HIP SURGERY: 1.5 - 2.5 HIP SURGERY: 2 - 3B) Primary and secondary prevention of venous THROMBOSIS: 2 - 3C) Active venous thrombosis, pulmonary embolismand prevention of recurrent venous thrombosis: 2 - 3D) Prevention of arterial thromboembolismincluding patients with mechanical heart valves: 3 - 4.5 Platelets Auto (Bld) [#/Vol] Ordered By: Kasi Zavala/Preceptor on 11-04-2022 Platelets (Bld) [#/Vol] 148 10*3/uL 150-450 [facility] Poikilocytosis [Presence] in Blood by Light microscopyOrdered By: Kasi Zavala/Preceptor on 11-04-2022 Poikilocytosis LM Ql (Bld) Slight [facility] Prothrombin Time INRon 11-04 INR Coag (PPP) [Relative time] 2.4 {INR} Normal [facility] Comment on above: Order Comment: Reaso n for Exam Deep vein thrombosis (DVT) of both lower extremities, unspec PT IS NON FASTING List the anticoagulant: COUMADIN/WARFARIN Result Comment: INR Therapeutic Range A) Pre- and Peroperative OAT started two weeks before surgery. NOT HIP SURGERY: 1.5 - 2.5 HIP SURGERY: 2 - 3 B) Primary and secondary prevention of venous THROMBOSIS: 2 - 3 C) Active venous thrombosis, pulmonary embolism and prevention of recurrent venous thrombosis: 2 - 3 D) Prevention of arterial thromboembolism including patients with mechanical heart valves: 3 - 4.5 PERFORMED BY: [facility] [address] [place] [address] PATHOLOGIST DISPENSING LEAD JONAH AMEZCUA M.D. Performed By: #### P T ####[place] [id number] [place] [id number] [facility] PT Coag (PPP) [Time] 27.0 s High 9.0-12.9 [facility] Comment on above: Order Comment: Reaso n for Exam Deep vein thrombosis (DVT) of both lower extremities, unspec PT IS NON FASTING List the anticoagulant: COUMADIN/WARFARIN Performed By: #### P T ####[place] [id number] [place] [id number] [facility] RBC Auto (Bld) [#/Vol]Ordere d By: Kasi Zavala/Jonaheptor on 11-04-2022 RBC (Bld) [#/Vol] 4.54 10*6/uL 3.90-5.60 [facility] RBC morphologyOrdered By: Er ic Mast/Preceptor on 11-04-2022 RBC morphology finding Nom (Bld) N/A [facility] Schistocytes [Presence] in B lood by Light microscopyOrdered By: Kasi Mast/Preceptor on 11-04-2022 Schistocytes LM Ql (Bld) Slight [facility] Segmented neutrophils/100 WB C Manual cnt (Bld)Ordered By: Kasi Mast/Preceptor on 11-04-2022 Segmented neutrophils/100 WBC (Bld) 61 % 50-70 [facility] Target cellsOrdered By: Kasi Mast/Preceptor on 11-04-2022 Target cells LM Ql (Bld) Slight [facility] Thyroid Stimulating Hormoneo n 11-04-2022 TSH Qn 9.39 m[IU]/L High 0.45-5.33 [facility] Comment on above: Order Comment: Reaso n for Exam Folate deficiency Reason for Exam Hypothyroidism, unspecified type PT IS NON FASTING Result Comment: PERF ORMED BY: [place] [address] PATHOLOGIST DISPENSING LEAD JONAH AMEZCUA M.D. Performed By: #### D IFF CBC, [id number], TSH3, T3T, T4F #### [address] Thyrotropin [Units/volume] i n Serum or PlasmaOrdered By: Kasi Mast/Preceptor on 11-04-2022 TSH Qn 9.39 m[IU]/L 0.45-5.33 [facility] Thyroxine (T4) free [Mass/vo lume] in Serum or PlasmaOrdered By: Kasi Mast/Preceptor on 11-04-2022 Free T4 [Mass/Vol] 0.68 ng/dL 0.61-1.12 [facility] Triiodothyronine (T3) Totalo n 11-04-2022 Triiodothyronine (T3) Total 1.13 ng/mL Normal 0.87-1.78 [facility] Comment on above: Order Comment: Reaso n for Exam Folate deficiency Reason for Exam Hypothyroidism, unspecified type PT IS NON FASTING Performed By: #### D IFF CBC, [id number], TSH3, T3T, T4F #### [facility] [address] [place] [id number] [facility] Triiodothyronine (T3) [Mass/ volume] in Serum or PlasmaOrdered By: Kasi Mast/Preceptor on 11-04-2022 T3 [Mass/Vol] 1.13 ng/mL 0.87-1.78 [facility] Vit. B12/Folate Profileon Cobalamin (Vitamin B12) [Mass/Vol] 223 pg/mL Normal 180-914 [facility] Comment on above: Order Comment: Reaso n for Exam Folate deficiency Reason for Exam Hypothyroidism, unspecified type PT IS NON FASTING Performed By: #### D IFF CBC, [id number], TSH3, T3T, T4F #### [facility] [address] [place] [address] [facility] Folate 2.8 ng/mL Low >5.9 [facility] Comment on above: Order Comment: Reaso n for Exam Folate deficiency Reason for Exam Hypothyroidism, unspecified type PT IS NON FASTING Result Comment: Deidra te reference range: >5.9 ng/ml The WHO technical consultation on folate and vitamin b12 deficiencies has determined that folate concentrations less than 4 ng/ml are considered deficient. Performed By: #### D IFF CBC, [id number], TSH3, T3T, T4F #### [facility] [address] [place] [address] [facility] Vitamin B12 ser/plasOrdered By: Kasi Mast/Preceptor on 11-04-2022 Cobalamin (Vitamin B12) [Mass/Vol] 223 pg/mL 180-914 [facility] WBC Auto (Bld) [#/Vol]Ordere d By: Kasi Mast/Preceptor on 11-04-2022 WBC (Bld) [#/Vol] 4.0 10*3/uL 4.1-10.5 [facility] US arterial pvr limited [place] 06-23-2022 US arterial pvr limited LE [facility] Main [place] [address] [place], [place] [id number] Ultrasound Report Signed Patient: Mya Caldwell MR#: [id number] : 1970 Acct:[id number] Age/Sex: 51 / M ADM Date: 06/23/22 Loc: UL Room: Type: REG CLI Attending Dr: Sofie Sparks MD Ordering Provider: Jeremiah Mendieta DO, RES Date of Service: 06/23/22 US/US arterial pvr limited LE: Leg cramping Copies to: Jeremiah Mendieta DO, JOHNNY Sparks MD LOWER EXTREMITY SEGMENTAL ARTERIAL DOPSCAN (PVR) INDICATION: Leg pain and recent DVT PROCEDURE: Right arm blood pressure is 154 , left is 147 . Pressures throughout the right leg are 214 at the high thigh, at the 208 low thigh, 203 at the calf, 198 at the ankle using th e posterior tibial artery, and 185 at the ankle using the dorsalis pedis artery with ankle- brachial index of 1.29 1.20 . Pressures throughout the left leg are 189 at the ankle using the posterior tibial artery, and 182 at the ankle using the dorsalis pedis artery with ankle-brachial index of 1.23 1.18 . Wave forms by plethysmography are normal. US/US arterial pvr limited LE IMPRESSION: NO HEMODYNAMICALLY SIGNIFICANT PERIPHERAL VASCULAR OCCLUSIVE DISEASE AT REST IN EITHER LOWER EXTREMITY. Impression dictated by: John Peguero MD06/23/2022 4:02 PM Dictation Location: [place] [address] Tech: Sarita Tony Transcribed By: TATIANNA 06/23/22 1602 Dictated By: John Peguero MD 06/23/22 1601 Signed By: 06/23/22 1602 Normal [facility] US venous duplex LE BIon US venous duplex LE [facility] [place] [address] Ultrasound Report Signed Patient: Mya Caldwell MR#: [id number] : 1970 Acct:[id number] Age/Sex: 51 / M ADM Date: 06/23/22 Loc: UL Room: Type: REG CLI Attending Dr: Sofie Sparks MD Ordering Provider: Jeremiah Mendieta DO, RES Date of Service: 06/23/22 US/US venous duplex LE BI: Deep vein thrombosis (DVT) of both lower extremities, unspec Copies to: Jeremiah Mendieta DO, RES Sofie Sparks MD Bilateral lower extremity venous duplex evaluation INDICATIONS: Edema pain and tenderness with leg cramps Findings: Right lower extremity: Compression color flow and augmentation were all normal. No thrombus was identified. Left lower extremity: Compression and color flow was abnormal at the location of the left femoral vein extending into the popliteal vein. This does appear acute. Thrombus was identified. US/US venous duplex LE BI IMPRESSION: Positive study for left lower extremity femoral and popliteal vein DVT. Impression dictated by: John Peguero MD06/23/2022 4:07 PM Dictation Location: [place] [address] Tech: Sarita Jimenez Transcribed By: [facility] 06/23/221606 Dictated By: John Peguero MD 06/23/221605 Signed By: 06/23/22 160 Normal [facility] C-Reactive Proteinon 022 C-Reactive Protein 0.6 mg/dL Normal 0.0-1.0 [facility] Comment on above: Order Comment: Reaso n for Exam Deep vein thrombosis (DVT) of both lower extremities, unspec Reason for Exam Arthralgia, unspecified joint;Chronic pain syndrome Reason for Exam Opioid use disorder;Celiac disease Reason for Exam Opioid use disorder Performed By: #### C RP, CBC, LDLD, T4F, LIPID, TSH3 wRFLX, ESR, [id number], CMP ####[facility] [address] [place] [id number] [facility]#### HBSAB, HBCAB ####[facility] , Complete Blood Count Auto Di ffon 03-24-2022 Basophils (Bld) [#/Vol] 0.0 10*3/uL Normal 0.0-0.2 [facility] Comment on above: Order Comment: Reaso n for Exam Deep vein thrombosis (DVT) of both lower extremities, unspec Reason for Exam Arthralgia, unspecified joint;Chronic pain syndrome Performed By: #### C RP, CBC, LDLD, T4F, LIPID, TSH3 wRFLX, ESR, [id number], CMP ####[place] [address]#### HBSAB, HBCAB ####[facility] , Basophils/100 WBC (Bld) 1.0 % Normal . [facility] Comment on above: Order Comment: Reaso n for Exam Deep vein thrombosis (DVT) of both lower extremities, unspec Reason for Exam Arthralgia, unspecified joint;Chronic pain syndrome Performed By: #### C RP, CBC, LDLD, T4F, LIPID, TSH3 wRFLX, ESR, [id number], CMP ####[address]#### HBSAB, HBCAB ####[facility] , Eosinophils (Bld) [#/Vol] 0.1 10*3/uL Normal 0.0-0.45 [facility] Comment on above: Order Comment: Reaso n for Exam Deep vein thrombosis (DVT) of both lower extremities, unspec Reason for Exam Arthralgia, unspecified joint;Chronic pain syndrome Performed By: #### C RP, CBC, LDLD, T4F, LIPID, TSH3 wRFLX, ESR, [id number], CMP ####[address]#### HBSAB, HBCAB ####[facility] , Eosinophils/100 WBC (Bld) 2.2 % Normal . [facility] Comment on above: Order Comment: Reaso n for Exam Deep vein thrombosis (DVT) of both lower extremities, unspec Reason for Exam Arthralgia, unspecified joint;Chronic pain syndrome Performed By: #### C RP, CBC, LDLD, T4F, LIPID, TSH3 wRFLX, ESR, [id number], CMP ####[address]#### HBSAB, HBCAB ####[facility] , Erythrocyte distribution width (RBC) [Ratio] 18.1 % High 12.0-14.8 [facility] Comment on above: Order Comment: Reaso n for Exam Deep vein thrombosis (DVT) of both lower extremities, unspec Reason for Exam Arthralgia, unspecified joint;Chronic pain syndrome Performed By: #### C RP, CBC, LDLD, T4F, LIPID, TSH3 wRFLX, ESR, [id number], CMP ####[address]#### HBSAB, HBCAB ####[facility] , Hematocrit (Bld) [Volume fraction] 35.8 % Low 38.8-50.0 [facility] Comment on above: Order Comment: Reaso n for Exam Deep vein thrombosis (DVT) of both lower extremities, unspec Reason for Exam Arthralgia, unspecified joint;Chronic pain syndrome Performed By: #### C RP, CBC, LDLD, T4F, LIPID, TSH3 wRFLX, ESR, [id number], CMP ####[address]#### HBSAB, HBCAB ####[facility] , Hemoglobin (Bld) [Mass/Vol] 11.0 g/dL Low 13.0-17.0 [facility] Comment on above: Order Comment: Reaso n for Exam Deep vein thrombosis (DVT) of both lower extremities, unspec Reason for Exam Arthralgia, unspecified joint;Chronic pain syndrome Performed By: #### C RP, CBC, LDLD, T4F, LIPID, TSH3 wRFLX, ESR, [id number], CMP ####[address]#### HBSAB, HBCAB ####[facility] , Lymphocytes (Bld) [#/Vol] 1.0 10*3/uL Normal 1.00-4.8 [facility] Comment on above: Order Comment: Reaso n for Exam Deep vein thrombosis (DVT) of both lower extremities, unspec Reason for Exam Arthralgia, unspecified joint;Chronic pain syndrome Performed By: #### C RP, CBC, LDLD, T4F, LIPID, TSH3 wRFLX, ESR, [id number], CMP ####[address]#### HBSAB, HBCAB ####[facility] , Lymphocytes/100 WBC (Bld) 20.5 % Normal . [facility] Comment on above: Order Comment: Reaso n for Exam Deep vein thrombosis (DVT) of both lower extremities, unspec Reason for Exam Arthralgia, unspecified joint;Chronic pain syndrome Performed By: #### C RP, CBC, LDLD, T4F, LIPID, TSH3 wRFLX, ESR, [id number], CMP ####[address]#### HBSAB, HBCAB ####[facility] , MCH (RBC) [Entitic mass] 22.4 pg Low 27.5-35.2 [facility] Comment on above: Order Comment: Reaso n for Exam Deep vein thrombosis (DVT) of both lower extremities, unspec Reason for Exam Arthralgia, unspecified joint;Chronic pain syndrome Performed By: #### C RP, CBC, LDLD, T4F, LIPID, TSH3 wRFLX, ESR, [id number], CMP ####[address]#### HBSAB, HBCAB ####[facility] , MCV (RBC) [Entitic vol] 72.9 fL Low 83.5-101 [facility] Comment on above: Order Comment: Reaso n for Exam Deep vein thrombosis (DVT) of both lower extremities, unspec Reason for Exam Arthralgia, unspecified joint;Chronic pain syndrome Performed By: #### C RP, CBC, LDLD, T4F, LIPID, TSH3 wRFLX, ESR, [id number], CMP ####[address]#### HBSAB, HBCAB ####[facility] , Mean Corpuscular HGB Conc 30.7 g/dL Low 32.5-35.6 [facility] Comment on above: Order Comment: Reaso n for Exam Deep vein thrombosis (DVT) of both lower extremities, unspec Reason for Exam Arthralgia, unspecified joint;Chronic pain syndrome Performed By: #### C RP, CBC, LDLD, T4F, LIPID, TSH3 wRFLX, ESR, [id number], CMP ####[place] [address]#### HBSAB, HBCAB ####[facility] , Monocytes (Bld) [#/Vol] 0.5 10*3/uL Normal 0.0-0.8 [facility] Comment on above: Order Comment: Reaso n for Exam Deep vein thrombosis (DVT) of both lower extremities, unspec Reason for Exam Arthralgia, unspecified joint;Chronic pain syndrome Performed By: #### C RP, CBC, LDLD, T4F, LIPID, TSH3 wRFLX, ESR, [id number], CMP ####[address]#### HBSAB, HBCAB ####[facility] , Monocytes/100 WBC (Bld) 10.5 % Normal . [facility] Comment on above: Order Comment: Reaso n for Exam Deep vein thrombosis (DVT) of both lower extremities, unspec Reason for Exam Arthralgia, unspecified joint;Chronic pain syndrome Performed By: #### C RP, CBC, LDLD, T4F, LIPID, TSH3 wRFLX, ESR, [id number], CMP ####[place] [address] [place]#### HBSAB, HBCAB ####[facility] , Neutrophils (Bld) [#/Vol] 3.1 10*3/uL Normal 1.8-7.7 [facility] Comment on above: Order Comment: Reaso n for Exam Deep vein thrombosis (DVT) of both lower extremities, unspec Reason for Exam Arthralgia, unspecified joint;Chronic pain syndrome Performed By: #### C RP, CBC, LDLD, T4F, LIPID, TSH3 wRFLX, ESR, [id number], CMP ####[address]#### HBSAB, HBCAB ####[facility] , Neutrophils/100 WBC (Bld) 65.8 % Normal . [facility] Comment on above: Order Comment: Reaso n for Exam Deep vein thrombosis (DVT) of both lower extremities, unspec Reason for Exam Arthralgia, unspecified joint;Chronic pain syndrome Performed By: #### C RP, CBC, LDLD, T4F, LIPID, TSH3 wRFLX, ESR, [id number], CMP ####[address]#### HBSAB, HBCAB ####[facility] , Nucleated RBC/100 WBC (Bld) [Ratio] 0.0 % Normal 0-0.5 [facility] Comment on above: Order Comment: Reaso n for Exam Deep vein thrombosis (DVT) of both lower extremities, unspec Reason for Exam Arthralgia, unspecified joint;Chronic pain syndrome Performed By: #### C RP, CBC, LDLD, T4F, LIPID, TSH3 wRFLX, ESR, [id number], CMP ####[address]#### HBSAB, HBCAB ####[facility] , Platelet mean volume (Bld) [Entitic vol] 9.0 fL Normal 6.6-10.1 [facility] Comment on above: Order Comment: Reaso n for Exam Deep vein thrombosis (DVT) of both lower extremities, unspec Reason for Exam Arthralgia, unspecified joint;Chronic pain syndrome Performed By: #### C RP, CBC, LDLD, T4F, LIPID, TSH3 wRFLX, ESR, [id number], CMP ####[address]#### HBSAB, HBCAB ####[facility] , Platelets (Bld) [#/Vol] 153 10*3/uL Normal 150-450 [facility] Comment on above: Order Comment: Reaso n for Exam Deep vein thrombosis (DVT) of both lower extremities, unspec Reason for Exam Arthralgia, unspecified joint;Chronic pain syndrome Performed By: #### C RP, CBC, LDLD, T4F, LIPID, TSH3 wRFLX, ESR, [id number], CMP ####[place] [address] [address]#### HBSAB, HBCAB ####[facility] , RBC (Bld) [#/Vol] 4.91 10*6/uL Normal 3.90-5.60 [facility] Comment on above: Order Comment: Reaso n for Exam Deep vein thrombosis (DVT) of both lower extremities, unspec Reason for Exam Arthralgia, unspecified joint;Chronic pain syndrome Performed By: #### C RP, CBC, LDLD, T4F, LIPID, TSH3 wRFLX, ESR, [id number], CMP ####[place] [address] [address]#### HBSAB, HBCAB ####[facility] , WBC (Bld) [#/Vol] 4.8 10*3/uL Normal 4.5-11.0 [facility] Comment on above: Order Comment: Reaso n for Exam Deep vein thrombosis (DVT) of both lower extremities, unspec Reason for Exam Arthralgia, unspecified joint;Chronic pain syndrome Performed By: #### C RP, CBC, LDLD, T4F, LIPID, TSH3 wRFLX, ESR, [id number], CMP ####[place] [address] [place]#### HBSAB, HBCAB ####[facility] , Comprehensive Metabolic Pane raffy 03-24-2022 Albumin [Mass/Vol] 3.6 g/dL Normal 3.2-5.5 [facility] Comment on above: Order Comment: Reaso n for Exam Deep vein thrombosis (DVT) of both lower extremities, unspec Reason for Exam Arthralgia, unspecified joint;Chronic pain syndrome Reason for Exam Opioid use disorder;Celiac disease Reason for Exam Opioid use disorder Performed By: #### C RP, CBC, LDLD, T4F, LIPID, TSH3 wRFLX, ESR, [id number], CMP ####[place] [address] [address]#### HBSAB, HBCAB ####[facility] , Albumin/Globulin [Mass ratio] 1.4 {ratio} Normal [facility] Comment on above: Order Comment: Reaso n for Exam Deep vein thrombosis (DVT) of both lower extremities, unspec Reason for Exam Arthralgia, unspecified joint;Chronic pain syndrome Reason for Exam Opioid use disorder;Celiac disease Reason for Exam Opioid use disorder Performed By: #### C RP, CBC, LDLD, T4F, LIPID, TSH3 wRFLX, ESR, [id number], CMP ####[address]#### HBSAB, HBCAB ####[facility] , ALP [Catalytic activity/Vol] 67 U/L Normal 32-92 [facility] Comment on above: Order Comment: Reaso n for Exam Deep vein thrombosis (DVT) of both lower extremities, unspec Reason for Exam Arthralgia, unspecified joint;Chronic pain syndrome Reason for Exam Opioid use disorder;Celiac disease Reason for Exam Opioid use disorder Performed By: #### C RP, CBC, LDLD, T4F, LIPID, TSH3 wRFLX, ESR, [id number], CMP ####[place] [address] [place]#### HBSAB, HBCAB ####[facility] , ALT [Catalytic activity/Vol] 16 U/L Normal 10-60 [facility] Comment on above: Order Comment: Reaso n for Exam Deep vein thrombosis (DVT) of both lower extremities, unspec Reason for Exam Arthralgia, unspecified joint;Chronic pain syndrome Reason for Exam Opioid use disorder;Celiac disease Reason for Exam Opioid use disorder Performed By: #### C RP, CBC, LDLD, T4F, LIPID, TSH3 wRFLX, ESR, [id number], CMP ####[address]#### HBSAB, HBCAB ####[facility] , Anion gap [Moles/Vol] 13.0 mmol/L Normal 6.0-15.0 [facility] Comment on above: Order Comment: Reaso n for Exam Deep vein thrombosis (DVT) of both lower extremities, unspec Reason for Exam Arthralgia, unspecified joint;Chronic pain syndrome Reason for Exam Opioid use disorder;Celiac disease Reason for Exam Opioid use disorder Performed By: #### C RP, CBC, LDLD, T4F, LIPID, TSH3 wRFLX, ESR, [id number], CMP ####[address]#### HBSAB, HBCAB ####[facility] , AST [Catalytic activity/Vol] 24 U/L Normal 10-42 [facility] Comment on above: Order Comment: Reaso n for Exam Deep vein thrombosis (DVT) of both lower extremities, unspec Reason for Exam Arthralgia, unspecified joint;Chronic pain syndrome Reason for Exam Opioid use disorder;Celiac disease Reason for Exam Opioid use disorder Performed By: #### C RP, CBC, LDLD, T4F, LIPID, TSH3 wRFLX, ESR, [id number], CMP ####[address]#### HBSAB, HBCAB ####[facility] , Bilirubin [Mass/Vol] 0.7 mg/dL Normal 0.3-1.2 [facility] Comment on above: Order Comment: Reaso n for Exam Deep vein thrombosis (DVT) of both lower extremities, unspec Reason for Exam Arthralgia, unspecified joint;Chronic pain syndrome Reason for Exam Opioid use disorder;Celiac disease Reason for Exam Opioid use disorder Performed By: #### C RP, CBC, LDLD, T4F, LIPID, TSH3 wRFLX, ESR, [id number], CMP ####[place] [address] [place] [address] [place]#### HBSAB, HBCAB ####[facility] , Calcium [Mass/Vol] 8.7 mg/dL Normal 8.2-10.2 [facility] Comment on above: Order Comment: Reaso n for Exam Deep vein thrombosis (DVT) of both lower extremities, unspec Reason for Exam Arthralgia, unspecified joint;Chronic pain syndrome Reason for Exam Opioid use disorder;Celiac disease Reason for Exam Opioid use disorder Performed By: #### C RP, CBC, LDLD, T4F, LIPID, TSH3 wRFLX, ESR, [id number], CMP ####[address]#### HBSAB, HBCAB ####[facility] , Chloride [Moles/Vol] 100 mmol/L Normal 95-114 [facility] Comment on above: Order Comment: Reaso n for Exam Deep vein thrombosis (DVT) of both lower extremities, unspec Reason for Exam Arthralgia, unspecified joint;Chronic pain syndrome Reason for Exam Opioid use disorder;Celiac disease Reason for Exam Opioid use disorder Performed By: #### C RP, CBC, LDLD, T4F, LIPID, TSH3 wRFLX, ESR, [id number], CMP ####[address]#### HBSAB, HBCAB ####[facility] , CO2 [Moles/Vol] 24.8 mmol/L Normal 22.0-30.0 [facility] Comment on above: Order Comment: Reaso n for Exam Deep vein thrombosis (DVT) of both lower extremities, unspec Reason for Exam Arthralgia, unspecified joint;Chronic pain syndrome Reason for Exam Opioid use disorder;Celiac disease Reason for Exam Opioid use disorder Performed By: #### C RP, CBC, LDLD, T4F, LIPID, TSH3 wRFLX, ESR, [id number], CMP ####[place] [address] [place]#### HBSAB, HBCAB ####[facility] , Creatinine [Mass/Vol] 0.76 mg/dL Normal 0.64-1.27 [facility] Comment on above: Order Comment: Reaso n for Exam Deep vein thrombosis (DVT) of both lower extremities, unspec Reason for Exam Arthralgia, unspecified joint;Chronic pain syndrome Reason for Exam Opioid use disorder;Celiac disease Reason for Exam Opioid use disorder Performed By: #### C RP, CBC, LDLD, T4F, LIPID, TSH3 wRFLX, ESR, [id number], CMP ####[address]#### HBSAB, HBCAB ####[facility] , Estimated GFR ( Aide > 60 [facility] Comment on above: Order Comment: Reaso n for Exam Deep vein thrombosis (DVT) of both lower extremities, unspec Reason for Exam Arthralgia, unspecified joint;Chronic pain syndrome Reason for Exam Opioid use disorder;Celiac disease Reason for Exam Opioid use disorder Result Comment: GFR estimated reference range: According to KDOQI guidelines, <60 ml/min/1.73m2 is sufficient to diagnose a patient with chronic kidney disease. Performed By: #### C RP, CBC, LDLD, T4F, LIPID, TSH3 wRFLX, ESR, [id number], CMP ####[address]#### HBSAB, HBCAB ####[facility] , Estimated GFR (Non- Am > 60 [facility] Comment on above: Order Comment: Reaso n for Exam Deep vein thrombosis (DVT) of both lower extremities, unspec Reason for Exam Arthralgia, unspecified joint;Chronic pain syndrome Reason for Exam Opioid use disorder;Celiac disease Reason for Exam Opioid use disorder Performed By: #### C RP, CBC, LDLD, T4F, LIPID, TSH3 wRFLX, ESR, [id number], CMP ####[address]#### HBSAB, HBCAB ####[facility] , Globulin (S) [Mass/Vol] 2.6 g/dL Normal [facility] Comment on above: Order Comment: Reaso n for Exam Deep vein thrombosis (DVT) of both lower extremities, unspec Reason for Exam Arthralgia, unspecified joint;Chronic pain syndrome Reason for Exam Opioid use disorder;Celiac disease Reason for Exam Opioid use disorder Performed By: #### C RP, CBC, LDLD, T4F, LIPID, TSH3 wRFLX, ESR, [id number], CMP ####[facility]#### HBSAB, HBCAB ####[facility] , Glucose [Mass/Vol] 94 mg/dL Normal 70-100 [facility] Comment on above: Order Comment: Reaso n for Exam Deep vein thrombosis (DVT) of both lower extremities, unspec Reason for Exam Arthralgia, unspecified joint;Chronic pain syndrome Reason for Exam Opioid use disorder;Celiac disease Reason for Exam Opioid use disorder Result Comment: [place] Glucose Reference Range is dependent on time and content of last meal. Glucose of more than 200 mg/dL in a nonstressed, ambulatory subject supports the diagnosis of Diabetes Mellitus. ADA recommended reference range Performed By: #### C RP, CBC, LDLD, T4F, LIPID, TSH3 wRFLX, ESR, [id number], CMP ####[address]#### HBSAB, HBCAB ####[facility] , Potassium [Moles/Vol] 3.8 mmol/L Normal 3.5-5.1 [facility] Comment on above: Order Comment: Reaso n for Exam Deep vein thrombosis (DVT) of both lower extremities, unspec Reason for Exam Arthralgia, unspecified joint;Chronic pain syndrome Reason for Exam Opioid use disorder;Celiac disease Reason for Exam Opioid use disorder Performed By: #### C RP, CBC, LDLD, T4F, LIPID, TSH3 wRFLX, ESR, [id number], CMP ####[place] [address] [place] [address] [place]#### HBSAB, HBCAB ####[facility] , Protein [Mass/Vol] 6.2 g/dL Normal 6.1-7.9 [facility] Comment on above: Order Comment: Reaso n for Exam Deep vein thrombosis (DVT) of both lower extremities, unspec Reason for Exam Arthralgia, unspecified joint;Chronic pain syndrome Reason for Exam Opioid use disorder;Celiac disease Reason for Exam Opioid use disorder Performed By: #### C RP, CBC, LDLD, T4F, LIPID, TSH3 wRFLX, ESR, [id number], CMP ####[address]#### HBSAB, HBCAB ####[facility] , Sodium [Moles/Vol] 134 mmol/L Low 136-146 [facility] Comment on above: Order Comment: Reaso n for Exam Deep vein thrombosis (DVT) of both lower extremities, unspec Reason for Exam Arthralgia, unspecified joint;Chronic pain syndrome Reason for Exam Opioid use disorder;Celiac disease Reason for Exam Opioid use disorder Performed By: #### C RP, CBC, LDLD, T4F, LIPID, TSH3 wRFLX, ESR, [id number], CMP ####[address]#### HBSAB, HBCAB ####[facility] , Urea nitrogen [Mass/Vol] 7 mg/dL Low 9-23 [facility] Comment on above: Order Comment: Reaso n for Exam Deep vein thrombosis (DVT) of both lower extremities, unspec Reason for Exam Arthralgia, unspecified joint;Chronic pain syndrome Reason for Exam Opioid use disorder;Celiac disease Reason for Exam Opioid use disorder Performed By: #### C RP, CBC, LDLD, T4F, LIPID, TSH3 wRFLX, ESR, [id number], CMP ####[place] [address] [place]#### HBSAB, HBCAB ####[facility] , Erythrocyte Sedimentation Ra shaggy 03-24-2022 ESR (Bld) [Velocity] 6 mm/h Normal 0-19 [facility] Comment on above: Order Comment: Reaso n for Exam Deep vein thrombosis (DVT) of both lower extremities, unspec Reason for Exam Arthralgia, unspecified joint;Chronic pain syndrome Result Comment: PERF ORMED BY: [facility] [address] [place] [address] PATHOLOGIST DISPENSING LEAD JONAH AMEZCUA M.D. Performed By: #### C RP, CBC, LDLD, T4F, LIPID, TSH3 wRFLX, ESR, [id number], CMP ####[facility]#### HBSAB, HBCAB ####[facility] , Free T4 (Free Thyroxine)on 0 03-24-2022 Free T4 [Mass/Vol] 0.68 ng/dL Normal 0.61-1.12 [facility] Comment on above: Order Comment: Reaso n for Exam Deep vein thrombosis (DVT) of both lower extremities, unspec Reason for Exam Arthralgia, unspecified joint;Chronic pain syndrome Reason for Exam Opioid use disorder;Celiac disease Reason for Exam Opioid use disorder Performed By: #### C RP, CBC, LDLD, T4F, LIPID, TSH3 wRFLX, ESR, [id number], CMP ####[place] [address] [address]#### HBSAB, HBCAB ####[facility] , HCV Antibody Cascadeon 03-24 Hepatitis C Virus Antibody 0.1 Normal 0.0-0.9 [facility] Comment on above: Order Comment: Reaso n for Exam Opioid use disorder Performed By: #### H CVCASCADE #### [facility] , Interpretation Hepatitis C Normal . [facility] Comment on above: Order Comment: Reaso n for Exam Opioid use disorder Result Comment: Nega tive Not infected with HCV, unless recent infection is suspected or other evidence exists to indicate HCV infection. Performed at: [address] [id number] Ceramic Painter: Mane Mendez PhD, Phone: [phone] PERFORMED BY: [place] [address] PATHOLOGIST DISPENSING LEAD JONAH AMEZCUA M.D. Performed By: #### H CVCASCADE #### [facility] , HIV 1/O/2 Antigen/Antibodyon 03-24-2022 HIV Screen 4th Generation Non-Reactive Normal Non Reactive [facility] Comment on above: Order Comment: Reaso n for Exam Opioid use disorder Result Comment: HIV Negative HIV-1/HIV-2 antibodies and HIV-1 p24 antigen were NOT detected. There is no laboratory evidence of HIV infection. Performed at: [place] [address] Ceramic Painter: Mane Mendez PhD, Phone: [phone] PERFORMED BY: [place] [address] PATHOLOGIST DISPENSING LEAD JONAH AMEZCUA M.D. Performed By: #### H IV SCREEN #### [facility] , Hepatitis B Core Antibodyon 03-24-2022 Hepatitis B Core Antibody Negative Normal Negative [facility] Comment on above: Order Comment: Reaso n for Exam Opioid use disorder Result Comment: Perf ormed at: [address] [id number] Ceramic Painter: Mane Mendez PhD, Phone: [phone] PERFORMED BY: [place] [address] PATHOLOGIST DISPENSING LEAD JONAH AMEZCUA M.D. Performed By: #### C RP, CBC, LDLD, T4F, LIPID, TSH3 wRFLX, ESR, [id number], CMP ####[facility] [id number]#### HBSAB, HBCAB ####[facility] , Hepatitis B Surface Antibody on 03-24-2022 Hepatitis B Surface Antibody Non-Reactive Normal . [facility] Comment on above: Order Comment: Reaso n for Exam Opioid use disorder Result Comment: Non Reactive: Inconsistent with immunity, less than 10 mIU/mL Reactive: Consistent with immunity, greater than 9.9 mIU/mL Performed By: #### C RP, CBC, LDLD, T4F, LIPID, TSH3 wRFLX, ESR, [id number], CMP ####[place] [address] [address]#### HBSAB, HBCAB ####[facility] , LDL Cholesterol Measuredon 0 03-24-2022 LDL Cholesterol Measured 89 mg/dL Normal 0-100 [facility] Comment on above: Order Comment: Reaso n for Exam Deep vein thrombosis (DVT) of both lower extremities, unspec Reason for Exam Arthralgia, unspecified joint;Chronic pain syndrome Reason for Exam Opioid use disorder;Celiac disease Reason for Exam Opioid use disorder Result Comment: LDL ATP III CLASSIFICATION LDL less than 100 mg/dL Optimal LDL 100-129 mg/dL Near or above optimal LDL 130-159 mg/dL Borderline high LDL 160-189 mg/dL High LDL greater than 189 mg/dL Very high Performed By: #### C RP, CBC, LDLD, T4F, LIPID, TSH3 wRFLX, ESR, [id number], CMP ####[place] [address] [place]#### HBSAB, HBCAB ####[facility] , Lipid Panelon 03-24-2022 Cholesterol [Mass/Vol] 156 mg/dL Normal 140-200 [facility] Comment on above: Order Comment: Reaso n for Exam Deep vein thrombosis (DVT) of both lower extremities, unspec Reason for Exam Arthralgia, unspecified joint;Chronic pain syndrome Reason for Exam Opioid use disorder;Celiac disease Reason for Exam Opioid use disorder Result Comment: Chol less than 200 mg/dl low risk Chol 201-239 mg/dl borderline risk Chol 240 mg/dl and greater high risk Performed By: #### C RP, CBC, LDLD, T4F, LIPID, TSH3 wRFLX, ESR, [id number], CMP ####[place] [address] [place]#### HBSAB, HBCAB ####[facility] , Cholesterol in HDL [Mass/Vol] 53 mg/dL Normal 29-71 [facility] Comment on above: Order Comment: Reaso n for Exam Deep vein thrombosis (DVT) of both lower extremities, unspec Reason for Exam Arthralgia, unspecified joint;Chronic pain syndrome Reason for Exam Opioid use disorder;Celiac disease Reason for Exam Opioid use disorder Result Comment: HDL CHOL ATP-III CLASSIFICATION Cardiovascular Risk HDL > or equal to 60 mg/dL LOW HDL < 40 mg/dL HIGH Performed By: #### C RP, CBC, LDLD, T4F, LIPID, TSH3 wRFLX, ESR, [id number], CMP ####[facility] [id number] [address]#### HBSAB, HBCAB ####[facility] , Cholesterol.total/Cho lesterol in HDL [Mass ratio] 2.9 {ratio} Normal <5.0 [facility] Comment on above: Order Comment: Reaso n for Exam Deep vein thrombosis (DVT) of both lower extremities, unspec Reason for Exam Arthralgia, unspecified joint;Chronic pain syndrome Reason for Exam Opioid use disorder;Celiac disease Reason for Exam Opioid use disorder Performed By: #### C RP, CBC, LDLD, T4F, LIPID, TSH3 wRFLX, ESR, [id number], CMP ####[facility] [id number] [address]#### HBSAB, HBCAB ####[facility] , LDL Cholesterol,Calculate d 90 mg/dL Normal 0-100 [facility] Comment on above: Order Comment: Reaso n for Exam Deep vein thrombosis (DVT) of both lower extremities, unspec Reason for Exam Arthralgia, unspecified joint;Chronic pain syndrome Reason for Exam Opioid use disorder;Celiac disease Reason for Exam Opioid use disorder Result Comment: LDL ATP III CLASSIFICATION LDL less than 100 mg/dL Optimal LDL 100-129 mg/dL Near or above optimal LDL 130-159 mg/dL Borderline high LDL 160-189 mg/dL High LDL greater than 189 mg/dL Very high Performed By: #### C RP, CBC, LDLD, T4F, LIPID, TSH3 wRFLX, ESR, [id number], CMP ####[place] [address]#### HBSAB, HBCAB ####[facility] , Triglyceride w/Reflex 66 mg/dL Normal 35-149 [facility] Comment on above: Order Comment: Reaso n for Exam Deep vein thrombosis (DVT) of both lower extremities, unspec Reason for Exam Arthralgia, unspecified joint;Chronic pain syndrome Reason for Exam Opioid use disorder;Celiac disease Reason for Exam Opioid use disorder Result Comment: TRIG ATP III CLASSIFICATION TRIG less than 150 mg/dL Normal TRIG 150-199 mg/dL Borderline high TRIG 200-500 mg/dL High TRIG greater than 500 mg/dL Very high Standard traceable to the Center for Disease Conrtrol and Prevention (CDC) test method. Performed By: #### C RP, CBC, LDLD, T4F, LIPID, TSH3 wRFLX, ESR, [id number], CMP ####[address]#### HBSAB, HBCAB ####[facility] , VLDL CHOLESTEROL 13 mg/dL Normal [facility] Comment on above: Order Comment: Reaso n for Exam Deep vein thrombosis (DVT) of both lower extremities, unspec Reason for Exam Arthralgia, unspecified joint;Chronic pain syndrome Reason for Exam Opioid use disorder;Celiac disease Reason for Exam Opioid use disorder Performed By: #### C RP, CBC, LDLD, T4F, LIPID, TSH3 wRFLX, ESR, [id number], CMP ####[address]#### HBSAB, HBCAB ####[facility] , Thyroid Stim Hormone w/Rflxo n 03-24-2022 Thyroid Stim Hormone w/Rflx 9.11 u[iU]/mL High 0.45-5.33 [facility] Comment on above: Order Comment: Reaso n for Exam Deep vein thrombosis (DVT) of both lower extremities, unspec Reason for Exam Arthralgia, unspecified joint;Chronic pain syndrome Reason for Exam Opioid use disorder;Celiac disease Reason for Exam Opioid use disorder Result Comment: PERF ORMED BY: [facility] [address] [place] [address] PATHOLOGIST DISPENSING LEAD JONAH AMEZCUA M.D. Performed By: #### C RP, CBC, LDLD, T4F, LIPID, TSH3 wRFLX, ESR, [id number], CMP ####[place] [address]#### HBSAB, HBCAB ####[facility] , Vit. B12/Folate Profileon Cobalamin (Vitamin B12) [Mass/Vol] 222 pg/mL Normal 180-914 [facility] Comment on above: Order Comment: Reaso n for Exam Deep vein thrombosis (DVT) of both lower extremities, unspec Reason for Exam Arthralgia, unspecified joint;Chronic pain syndrome Reason for Exam Opioid use disorder;Celiac disease Reason for Exam Opioid use disorder Performed By: #### C RP, CBC, LDLD, T4F, LIPID, TSH3 wRFLX, ESR, [id number], CMP ####[address]#### HBSAB, HBCAB ####[facility] , Folate 3.6 ng/mL Low >5.9 [facility] Comment on above: Order Comment: Reaso n for Exam Deep vein thrombosis (DVT) of both lower extremities, unspec Reason for Exam Arthralgia, unspecified joint;Chronic pain syndrome Reason for Exam Opioid use disorder;Celiac disease Reason for Exam Opioid use disorder Result Comment: Deidra te reference range: >5.9 ng/ml The WHO technical consultation on folate and vitamin b12 deficiencies has determined that folate concentrations less than 4 ng/ml are considered deficient. Performed By: #### C RP, CBC, LDLD, T4F, LIPID, TSH3 wRFLX, ESR, [id number], CMP ####[place] [address] [place]#### HBSAB, HBCAB ####[facility] , XR ANKLE RT MIN 3 VIEWSon XR ANKLE RT MIN 3 VIEWS [address] [place] [address] Patient: MYA CALDWELL. Exam Date: 05/14/2018DOB: 1970 Gender:M : BRAYAN DUNLAP Admission #: [id number] : Order #: [id number] HERE TO VIEW EXAM RADIOLOGY REPORT PROCEDURE: RADIOGRAPH ANKLE RIGHT MIN 3 VIEWS COMPARISON: None. INDICATIONS: Right ankle pain without injury; palpable lump posterior to ankle with occasional pain FINDINGS: BONES: No fracture, acute abnormality, or significant arthropathy. SOFT TISSUES: Small skin surface contour deformity along the posterior margin of the distal lower extremity, just cephalad to the ankle joint. No visible mass or radiopaque foreign body.EFFUSION: None visible. OTHER: Negative. CONCLUSION: 1. Normal appearance the bones.2. The described palpable lump is visible along the posterior margin of the distal lower extremity; no foreign body or visible mass. Consider MRI for evaluation of the Achilles tendon if clinically indicated. Dictated by: Zelalem Hernandez M.D. on 05/14/2018 at 12:24 Approved by: Zelalem Hernandez M.D. on 05/14/2018 at 12:27 Normal [facility] XR TIB-FIB RT 2Von 8 XR TIB-FIB RT 2V [address] [place] [address] Patient: MYA CALDWELL. Exam Date: 05/14/2018DOB: 1970 Gender:M : BRAYAN DUNLAP Admission #: [id number] : Order #: [id number] HERE TO VIEW EXAM RADIOLOGY REPORT PROCEDURE: RADIOGRAPH TIBIA/FIBULA RIGHT 2 VIEWS COMPARISON: XR ANKLE RT MIN 3 VIEWS, 05/14/2018. INDICATIONS: Pain to entire right lower leg without injury, initial imaging; tender lump posterior to ankle FINDINGS: BONES: No fracture, acute abnormality, or significant arthropathy. SOFT TISSUES: Small skin surface bump posterior and cephalad to the ankle. No radiopaque foreign body.OTHER: Negative. CONCLUSION: 1. Normal appearance of the bones.2. Nonspecific small bump involving the posterior skin surface. Dictated by: Zelalem Hernandez M.D. on 05/14/2018 at 12:27 Approved by: Zelalem Hernandez M.D. on 05/14/2018 at 12:28 Normal [facility] Vital Signs Date Time Vital Sign Value Performing Clinician Facility 11-15-2022 01:10-0400 Heart rate 70 /min Services [facility] Work Phone: [facility] 11-15-2022 01:10-0400 Respiratory rate 20 /min Services [facility] Work Phone: [facility] 11-15-2022 01:10-0400 SaO2% (BldA) [Mass fraction] 95 % Services [employer] Work Phone: [facility] 11-15-2022 00:07-0400 Body height 190.5 cm Services [employer] Work Phone: [facility] 11-15-2022 00:07-0400 Body temperature 97.5 [degF] Services [employer] Work Phone: [facility] 11-15-2022 00:07-0400 Body weight 105.85 kg Services [employer] Work Phone: [facility] 11-15-2022 00:07-0400 Diastolic blood pressure 82 mm[Hg] Services [facility] [employer] Work Phone: [facility] 11-15-2022 00:07-0400 Systolic blood pressure 140 mm[Hg] Services [employer] Work Phone: [facility] 08-21-2022 12:15-0500 Body height 187.96 cm John Peguero Other [facility] Other 08-21-2022 12:15-0500 Body mass index (BMI) [Ratio] 28.63 kg/m2 John Peguero Other [facility] Other 08-21-2022 12:15-0500 Body temperature 97.8 [degF] John Mckeonhamilton Other [facility] Other 08-21-2022 12:15-0500 Body weight 101.15 kg John Mckeonhamilton Other [facility] Other 08-21-2022 12:15-0500 Diastolic blood pressure 70 mm[Hg] John Sudhir Other [facility] Other 08-21-2022 12:15-0500 SaO2% (BldA) [Mass fraction] 95 % John Mckeonhamilton Other [facility] Other 08-21-2022 12:15-0500 Systolic blood pressure 118 mm[Hg] John Sudhir Other [place] [employer] Other 08-12-2022 15:06-0500 Body temperature 97.8 [degF] Services [facility] [facility] Work Phone: [facility] 08-12-2022 15:06-0500 Body weight 99.8 kg Services [facility] [facility] Work Phone: [facility] 08-12-2022 15:06-0500 Diastolic blood pressure 79 mm[Hg] Services [facility] Work Phone: [facility] 08-12-2022 15:06-0500 Heart rate 71 /min [facility] Work Phone: [facility] 08-12-2022 15:06-0500 Respiratory rate 16 /min [facility] Work Phone: [facility] 08-12-2022 15:06-0500 SaO2% (BldA) [Mass fraction] 98 % [facility] Work Phone: [facility] 08-12-2022 15:06-0500 Systolic blood pressure 130 mm[Hg] Services [facility] [employer] Phone: [facility] 08-12-2022 14:48-0500 Body height 189.23 cm Services [facility] [employer] Phone: [facility] Encounters Encounter Date Encounter Type Care Provider Facility Start: 06-09-2023 End: 06-09-2023 ambulatory Erica Montaño Other [facility] Other Start: 06-09-2023 Telephone encounter Erica Muñoz her [facility] Start: 05-28-2023 End: 05-28-2023 ambulatory Erica Damonbrittanigene Other [facility] Other Start: 05-28-2023 Telephone encounter Erica Muñoz her [facility] Start: 12-26-2022 End: 12-27-2022 ambulatory [facility]STOPHER D [facility] Start: 12-26-2022 End: 12-26-2022 Subsequent hospital visit by physician None None [facility] Start: 12-25-2022 End: 12-26-2022 ambulatory CHRISTOPHER D SEARS [facility] Start: 12-25-2022 End: 12-25-2022 Subsequent hospital visit by physician None None [facility] Start: 12-22-2022 End: 12-23-2022 ambulatory CHRISTOPHER D SEARS [facility] Start: 12-22-2022 End: 12-22-2022 Subsequent hospital visit by physician None None [facility] Start: 12-19-2022 End: 12-20-2022 ambulatory CHRISTOPHER D SEARS [facility] Start: 12-15-2022 End: 12-16-2022 ambulatory CHRISTOPHER D SEARS [facility] Start: 2022 End: 12-13-2022 ambulatory CHRISTOPHER D SEARS [facility] Start: 11-15-2022 End: 11-15-2022 Emergency department patient visit Services [facility] Facility:[facility] Start: 11-15-2022 End: 11-15-2022 Emergency department patient visit Services [facility] Work Phone: [facility] Work Phone: Start: 11-04-2022 End: 11-04-2022 ambulatory Services [facility] Facility:[facility] Start: 11-04-2022 End: 11-04-2022 ambulatory Services [facility] Work Phone: [facility] Work Phone: Start: 11-04-2022 End: 11-04-2022 Patient encounter procedure Services [facility] Work Phone: [facility] [place] Work Phone: Start: 09-24-2022 End: 09-24-2022 ambulatory Nancy Fitt Other [facility] Other Start: 09-24-2022 Telephone encounter Nancy Fitt [facility] Start: 09-09-2022 End: 09-09-2022 ambulatory Nancy Fitt Other [facility] Other Start: 09-09-2022 Telephone encounter Nancy Fitt [facility] Start: 08-21-2022 End: 08-21-2022 ambulatory John Peguero Other [facility] Other Start: 08-21-2022 Office outpatient ne w 45 minutes John Peguero [facility] Start: 08-15-2022 End: 08-15-2022 ambulatory Nancy Fitt Other [facility] Other Start: 08-15-2022 Telephone encounter Nancy Fitt [facility] Start: 08-12-2022 ambulatory Services [facility] Facility:[facility] Start: 08-12-2022 Registered Recurring Services [facility] Work Phone: [facility] Work Phone: Start: 06-23-2022 End: 06-23-2022 ambulatory Sofie Ketvertis Facility:[facility] Start: 06-23-2022 End: 06-23-2022 ambulatory DO Jeremiah Mendieta Work Phone: [facility] Work Phone: Start: 06-23-2022 End: 06-23-2022 Patient encounter procedure DO Jeremiah Mendieta Work Phone: [facility] [place] Start: 03-24-2022 End: 03-24-2022 ambulatory Kasi Mast Facility:[facility] Start: 05-14-2018 End: 05-15-2018 Patient encounter BRAYAN DUNLAP Facility:[facility]1 Procedures Date Procedure Procedure Detail Performing Clinician Start: 12-26-2022 Prothrombin time Hipolito Dale MD Work Phone: Start: 12-25-2022 Prothrombin time Hipolito Dale MD Work Phone: Start: 12-22-2022 Prothrombin time Hipolito Dale MD Work Phone: Start: 06-23-2022 Duplex scan of lower limb veins DO [employer] [facility] Work Phone: Start: 06-23-2022 US arterial pvr limi aria LE DO [employer] [facility] Work Phone: Plan of Treatment Date Care Activity Detail Author Start: 02-24-2023 Influenza vaccination Flu vacc ine (Season Ended) [facility] Start: 11-15-2022 X-ray of both knees [facility] Start: 11-15-2022 XR Knee - bilateral 4 Views [facility] Start: 11-15-2022 CT cervical spine without contrast CT cervical spine wo con [facility] Start: 11-15-2022 CT Cervical spine WO contrast [facility] Start: 11-15-2022 CT of head without contrast CT head/brain wo con [facility] Start: 11-15-2022 CT Unspecified body region WO contrast [facility] Start: 1989 DTaP/Tdap/Td vaccine (1 - Tdap) DTaP/Tdap/Td vaccine (1 - Tdap) [facility] Start: 06-14-1971 COVID-19 Vaccine (#1) COVID-19 Vacci ne (#1) [facility] Patient Education Skin Abrasions Alcohol Use Disorder ED [facility] Eye ED Minor Head Injury, Adult ED [facility] Work Phone: Patient referral [facility] Work Phone: [facility] Payers Date Payer Category Payer Unknown [id number] 2022 Unknown [id number] 2022 Medicaid [id number] 2022 Self-pay [id number] 1970 Unknown [id number] 2.16.84 [id number] 1970 Unknown [id number] 2.16.8 [id number] 1970 Unknown [id number] 2.16.8 [id number] 1970 Unknown [id number] 2.16.8 [id number] 1970 Unknown [id number] 2.16.8 [id number] 1970 Unknown [id number] 2.16.8 [id number] 1959 Unknown [id number] Unknown [id number] 2.16.8 [id number] Unknown [id number] 2.16.8 [id number] Unknown [id number] 2.16.8 [id number] Unknown [id number] 2.16.8 [id number] Unknown [id number] 2.16.8 [id number] Social History Date Type Detail Facility Start: 05-23-2021 End: 11-15-2022 Tobacco smoking status DEIS Smoker (finding) [facility] Start: 1970 Sex Assigned At Male F [facility] Sex Assigned At Sex Assigned At Bir th [facility] Other Start: 08-12-2022 Tobacco smoking stat [facility] Current some day smoker [facility] Start: 11-03-2012 Tobacco smoking stat [facility] Smokes tobacco daily [facility] [employer] Phone: History of tobacco use Cigarette Smoker [facility] Phone: Start: 11-03-2012 Cigarettes smoked current (pack per day) - Reported 1 [facility] [employer] Phone: Start: 1970 Sex Assigned At Not on file [facility] Phone: Evaluation note 06-09-2023 Note Date & Type Note Facility 06-09-2023 Evaluation note Encounter Date Diagnosis Assessment Notes May, Neuropathy (ICD-10 - G62.9) May, Other last filled on 05/08/2023 [facility] Other Evaluation note 08-21-2022 Note Date & Type Note Facility 08-21-2022 Evaluation note Encounter Date Diagnosis Assessment Notes Jul, Deep vein thrombosis (DVT) of popliteal vein of left lower extremity, unspecified chronicity (ICD-10 - I82.432) Is quite clear this patient will likely need lifelong anticoagulation. 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 I agree with Coumadin therapy for now. I am not sure if he failed Eliquis or not. It sounds like there were some compliance issues. But I do know is that there is no indication for any surgery at this time and he should definitely wear compression stockings to help control swelling and edema. This patient is at risk for postphlebitic syndrome. I explained this to him today. I do recommend lifelong Coumadin at this point and that would negate the necessity for a hypercoagulable work-up. I will see him as needed in the future all his questions were addressed. [facility] Other Reason for visit Narrative 08-19-2022 Note Date & Type Note Facility 08-19-2022 Reason for visit Narrative [facility] Warfarin Referral, LM 08/19 [facility] Other Evaluation note Note Date & Type Note Facility Evaluation note No assessment information availa [facility] Work Phone: Evaluation note Note Date & Type Note Facility Evaluation note No Information [employer] Other Evaluation note Note Date & Type Note Facility Evaluation note Diagnosis Onset Date DVT (deep venous thrombosis) acute [facility] Work Phone: History general Narrative - Reported Note Date & Type Note Facility History general Narrative - Reported Type Medical History celiac disease Medical History history of DVT Medical History depression/anixety Hospitalization History see surgical hx [facility] Other Summary Purpose Family History Relationship Condition Age at Onset Recorded Date/T mendy grandparent Deep vein thrombosis (DVT) Unknown family member Deep vein thrombosis (DVT) Unknown Not Specified Malignant neoplasm of breast Unknown Advance Directives Advance Directive Response Recorded Date/ Time Advance Directives No December 29 1 9:05am Advance Directive Response Recorded Date/ Time Advance Directives No December 29 1 10:05am Chief Complaint and Reason for Visit Chief Complaint I82.40 R25.2 Chief Complaint DVT E03.9 E53.8 D64.9 Reason for Visit DVT (deep venous thr ombosis) Chief Complaint E03.9 E53.8 D64.9 Rt leg pain Additional Source Comments (unrecognized sect ion and content) No Status Records FoundNo Status Records FoundNo Status Records Found INFORMATION SOURCE (unrecogn ized section and content) DATE CREATED AUTHOR 06/17/2018 [facility] DATE CREATED AUTHOR AUTHOR'S ORGANIZ ATION 01/03/2023 [facility] DATE CREATED AUTHOR AUTHOR'S ORGANIZ ATION 02/09/2023 [facility] Care Teams (unrecognized sec tion and content) Team Status: Active Member Role Status Dates Services [facility] Primary Care Provider Active Team Status: Inactive Member Role Status Dates Services [facility] Primary Care Provider Active Kasi Zavala , DO Attending Provider Active Jeremiah Mendieta , DO RES Referring Provider Active Team Status: Inactive Member Role Status Dates Services [facility] Primary Care Provider Active Jose Zavala Jr, MD Emergency Provider Active Team Status: Inactive Member Role Status Dates Jeremiah Mendieta , DO RES Referring Provider Active Sofie Sparks MD Attending Provider Active Services [facility] Primary Care Provider Active Team Status: Active Member Role Status Dates Services [facility] Primary Care Provider, Referrin g Provider Active Yesi Hernandez APRN Attending Provider Naseem obregon Gi Technician Relationship Specialty Start Date End Date None, None PCP - General 12/12/22 Gi Technician Relationship Specialty Start Date End Date None, None PCP - General 12/12/22 Goals (unrecognized section and content) Goals may be documented in a n alternate sectionNo InformationNo InformationNo InformationNo InformationGoals may be documented in an alternate sectionGoals may be documented in an alternate sectionNo InformationNo Information REASON FOR VISIT (unrecogniz ed section and content) REFERRED BY [facility] FOR CHRONIC DVT OF LEFT LEGFCCC Pt does not wish our [facility] Warfarin managementWarfarin DoseRefill FOR RECORDS PERTAINING TO PATIENTS WHO ARE OR HAVE BEEN ENROLLED IN A CHEMICAL DEPENDENCY/SUBSTANCEABUSE PROGRAM, SOME INFORMATION MAY BE OMITTED. This clinical summary was aggregated from multiple sources. Caution should be exercised in using it in the provision of clinical care. This summary normalizes information from multiple sources, and as a consequence, information in this document may materially change the coding, format and clinical context of patient data. In addition, data may be omitted in some cases. CLINICAL DECISIONS SHOULD BE BASED ON THE PRIMARY CLINICAL RECORDS. [employer] provides no warranty or guarantee of the accuracy or completeness of information in this document.
[2023-08-17 17:01] LABS: Basophils Absolute Auto 0.1 10^3/uL (0.0-0.1); Basophils Percent Auto 0.6 % (0.2-2.0); Eosinophils Absolute Auto 0.3 10^3/uL (0.0-0.7); Eosinophils Percent Auto 2.3 % (0.9-7.0); Hemoglobin 10.9 g/dL (14.0-18.0); Immature Granulocytes Abs Auto 0.08 10^3/uL (0.00-0.03); Immature Granulocytes Pct Auto 0.6 % (0.0-0.5); Lymphocytes Absolute Auto 1.9 10^3/uL (1.2-3.8); Lymphocytes Percent Auto 13.9 % (20.5-60.0); Mean Corpuscular HGB Conc 29.5 g/dL (29.9-35.2); Mean Corpuscular Hemoglobin 22.4 pg (25.9-34.0); Mean Platelet Volume 10.9 fL (9.5-13.5); Monocytes Absolute Auto 1.2 10^3/uL (0.3-0.8); Monocytes Percent Auto 8.8 % (1.7-12.0); Neutrophils Absolute Auto 10.2 10^3/uL (1.4-6.5); Neutrophils Percent Auto 73.8 % (43.0-75.0); Platelet Count 284 10^3/uL (150-450); Red Blood Count 4.87 10^6/uL (4.70-6.10); Red Cell Distribution Width 17.5 % (11.0-15.0); White Blood Count 13.8 10^3/uL (4.0-11.0)
[2023-08-17 17:30] LABS: INR 0.98; Prothrombin Time 10.4 sec (9.0-11.6)
[2023-08-17 19:31] LABS: Alanine Aminotransferase 25 U/L (16-63); Albumin Level 3.9 g/dL (3.4-5.0); Alkaline Phosphatase 98 U/L (46-116); Anion Gap 14.2; Aspartate Amino Transferase 23 U/L (15-37); BUN Creatinine Ratio 20.5; Bilirubin Total 0.6 mg/dL (0.2-1.0); Calcium 8.8 mg/dL (8.5-10.1); Carbon Dioxide 24.9 mmol/L (21.0-32.0); Chloride 98 mmol/L (98-107); Chol HDL Ratio 2.6; Cholesterol 147 mg/dL (<=200); Estimated GFR (African America >60 (>=60); Estimated GFR (Non-African Ame >60 (>=60); Glucose 93 mg/dL (74-106); HDL Cholesterol 57 mg/dL (40-60); LDL Cholesterol Calculated 72.6 mg/dL; Potassium 5.1 mmol/L (3.5-5.1); Sodium 132 mmol/L (136-145); TSH W/ REFLEX FT4 6.658 uIU/mL (0.358-3.740); Total Protein 7.9 g/dL (6.4-8.2); Triglycerides 87 mg/dL (<=150); VLDL CHOLESTEROL 17.4 mg/dL
[2023-08-17 19:53] LABS: Free T4 0.88 ng/dL (0.76-1.46)
== END 2023-08-17 16:34 | disposition home or self-care (01) ==
PROVIDERS: PCP Nurse Practitioner Family; Visit Provider Nurse Practitioner Family
DX: E03.9 Hypothyroidism, unspecified (principal); I10 Essential (primary) hypertension; I82.432 Acute embolism and thrombosis of left popliteal vein; Z79.01 Long term (current) use of anticoagulants
CPT/HCPCS: 36415; 80053; 80061; 84439; 84443; 85025; 85610

== ENCOUNTER 2023-08-27 01:32 | Outpatient (RCR) | payer MEDICAID, SELFPAY | END 2023-09-24 17:11 | disposition home or self-care (01) | LOC: MM 01:32 | PROVIDERS: PCP Nurse Practitioner Family; Visit Provider Internal Medicine | DX: Z51.81 Encounter for therapeutic drug level monitoring (principal); Z79.01 Long term (current) use of anticoagulants; I82.409 Acute embolism and thrombosis of unspecified deep veins of unspecified lower extremity | CPT/HCPCS: 85610; G0463 ==

== ENCOUNTER 2023-09-25 01:05 | Outpatient (RCR) | payer MEDICARE, SELFPAY | END 2023-10-23 13:03 | disposition home or self-care (01) | LOC: MM 01:05 | PROVIDERS: PCP Nurse Practitioner Family; Visit Provider Internal Medicine | DX: Z51.81 Encounter for therapeutic drug level monitoring (principal); Z79.01 Long term (current) use of anticoagulants; I82.409 Acute embolism and thrombosis of unspecified deep veins of unspecified lower extremity; I26.99 Other pulmonary embolism without acute cor pulmonale ==

== ENCOUNTER 2023-10-26 00:04 | Outpatient (RCR) | payer MEDICARE, SELFPAY | END 2023-11-24 17:48 | disposition home or self-care (01) | LOC: MM 00:04 | PROVIDERS: PCP Nurse Practitioner Family; Visit Provider Internal Medicine | DX: Z51.81 Encounter for therapeutic drug level monitoring (principal); Z79.01 Long term (current) use of anticoagulants; I82.409 Acute embolism and thrombosis of unspecified deep veins of unspecified lower extremity; I26.99 Other pulmonary embolism without acute cor pulmonale ==

== ENCOUNTER 2023-11-25 04:34 | Outpatient (RCR) | payer MEDICARE, SELFPAY | END 2023-12-25 11:49 | disposition home or self-care (01) | LOC: MM 04:34 | PROVIDERS: PCP Nurse Practitioner Family; Visit Provider Internal Medicine | DX: Z51.81 Encounter for therapeutic drug level monitoring (principal); Z79.01 Long term (current) use of anticoagulants; I82.409 Acute embolism and thrombosis of unspecified deep veins of unspecified lower extremity; I26.99 Other pulmonary embolism without acute cor pulmonale ==

== ENCOUNTER 2023-12-28 00:16 | Outpatient (RCR) | payer MEDICARE, SELFPAY | END 2024-01-22 10:17 | disposition home or self-care (01) | LOC: MM 00:16 | PROVIDERS: PCP Nurse Practitioner Family; Visit Provider Internal Medicine | DX: Z51.81 Encounter for therapeutic drug level monitoring (principal); Z79.01 Long term (current) use of anticoagulants; I82.409 Acute embolism and thrombosis of unspecified deep veins of unspecified lower extremity; I26.99 Other pulmonary embolism without acute cor pulmonale ==

== ENCOUNTER 2024-01-25 00:37 | Outpatient (RCR) | payer MEDICARE, SELFPAY | END 2024-02-24 09:37 | disposition home or self-care (01) | LOC: MM 00:37 | PROVIDERS: PCP Nurse Practitioner Family; Visit Provider Internal Medicine | DX: Z51.81 Encounter for therapeutic drug level monitoring (principal); Z79.01 Long term (current) use of anticoagulants; I26.99 Other pulmonary embolism without acute cor pulmonale; I82.409 Acute embolism and thrombosis of unspecified deep veins of unspecified lower extremity ==

== ENCOUNTER 2024-02-25 00:30 | Outpatient (RCR) | payer MEDICARE, SELFPAY | END 2024-03-25 09:18 | disposition home or self-care (01) | LOC: MM 00:30 | PROVIDERS: PCP Nurse Practitioner Family; Visit Provider Internal Medicine | DX: Z51.81 Encounter for therapeutic drug level monitoring (principal); Z79.01 Long term (current) use of anticoagulants; I82.409 Acute embolism and thrombosis of unspecified deep veins of unspecified lower extremity; Z86.711 Personal history of pulmonary embolism | CPT/HCPCS: 85610; G0463 ==

== ENCOUNTER 2024-03-28 00:52 | Outpatient (RCR) | payer MEDICARE, SELFPAY | END 2024-04-25 23:20 | disposition home or self-care (01) | LOC: MM 00:52 | PROVIDERS: PCP Nurse Practitioner Family; Visit Provider Internal Medicine | DX: Z51.81 Encounter for therapeutic drug level monitoring (principal); Z79.01 Long term (current) use of anticoagulants; I82.409 Acute embolism and thrombosis of unspecified deep veins of unspecified lower extremity; Z86.711 Personal history of pulmonary embolism ==

== ENCOUNTER 2024-04-26 01:23 | Outpatient (RCR) | payer MEDICARE, SELFPAY | END 2024-05-26 23:37 | disposition home or self-care (01) | LOC: MM 01:23 | PROVIDERS: PCP Nurse Practitioner Family; Visit Provider Internal Medicine | DX: Z51.81 Encounter for therapeutic drug level monitoring (principal); Z79.01 Long term (current) use of anticoagulants; I82.409 Acute embolism and thrombosis of unspecified deep veins of unspecified lower extremity; Z86.711 Personal history of pulmonary embolism ==

== ENCOUNTER 2024-05-27 10:44 | Outpatient (RCR) | payer MEDICARE, SELFPAY | END 2024-06-25 23:59 | disposition home or self-care (01) | LOC: MM 10:44 | PROVIDERS: PCP Nurse Practitioner Family; Visit Provider Internal Medicine | DX: Z51.81 Encounter for therapeutic drug level monitoring (principal); Z79.01 Long term (current) use of anticoagulants; I82.409 Acute embolism and thrombosis of unspecified deep veins of unspecified lower extremity; I26.99 Other pulmonary embolism without acute cor pulmonale ==

== ENCOUNTER 2024-06-26 10:47 | Outpatient (RCR) | payer MEDICARE, SELFPAY | END 2024-07-26 09:57 | disposition home or self-care (01) | LOC: MM 10:47 | PROVIDERS: PCP Nurse Practitioner Family; Visit Provider Internal Medicine | DX: Z51.81 Encounter for therapeutic drug level monitoring (principal); Z79.01 Long term (current) use of anticoagulants; I82.409 Acute embolism and thrombosis of unspecified deep veins of unspecified lower extremity; I26.99 Other pulmonary embolism without acute cor pulmonale ==

== ENCOUNTER 2024-07-28 00:18 | Outpatient (RCR) | payer MEDICARE, SELFPAY | END 2024-08-26 15:26 | disposition home or self-care (01) | LOC: MM 00:18 | PROVIDERS: PCP Nurse Practitioner Family; Visit Provider Internal Medicine | DX: Z51.81 Encounter for therapeutic drug level monitoring (principal); Z79.01 Long term (current) use of anticoagulants; I82.409 Acute embolism and thrombosis of unspecified deep veins of unspecified lower extremity; I26.99 Other pulmonary embolism without acute cor pulmonale ==

== ENCOUNTER 2024-08-29 02:36 | Outpatient (RCR) | payer MEDICARE, SELFPAY | END 2024-09-23 10:50 | disposition home or self-care (01) | LOC: MM 02:36 | PROVIDERS: PCP Nurse Practitioner Family; Visit Provider Internal Medicine | DX: Z51.81 Encounter for therapeutic drug level monitoring (principal); Z79.01 Long term (current) use of anticoagulants; I82.409 Acute embolism and thrombosis of unspecified deep veins of unspecified lower extremity; Z86.711 Personal history of pulmonary embolism ==

== ENCOUNTER 2024-09-24 07:28 | Outpatient (RCR) | payer MEDICARE, SELFPAY | END 2024-10-21 10:12 | disposition home or self-care (01) | LOC: MM 07:28 | PROVIDERS: PCP Nurse Practitioner Family; Visit Provider Internal Medicine | DX: Z51.81 Encounter for therapeutic drug level monitoring (principal); Z79.01 Long term (current) use of anticoagulants; I26.99 Other pulmonary embolism without acute cor pulmonale; Z86.718 Personal history of other venous thrombosis and embolism ==

== ENCOUNTER 2024-10-25 05:28 | Outpatient (RCR) | payer MEDICARE, SELFPAY | END 2024-11-23 15:47 | disposition home or self-care (01) | LOC: MM 05:28 | PROVIDERS: PCP Nurse Practitioner Family; Visit Provider Internal Medicine | DX: Z51.81 Encounter for therapeutic drug level monitoring (principal); Z79.01 Long term (current) use of anticoagulants ==

== ENCOUNTER 2024-11-24 04:42 | Outpatient (RCR) | payer MEDICARE, SELFPAY | END 2024-12-23 15:19 | disposition home or self-care (01) | LOC: MM 04:42 | PROVIDERS: PCP Nurse Practitioner Family; Visit Provider Internal Medicine | DX: Z51.81 Encounter for therapeutic drug level monitoring (principal); Z79.01 Long term (current) use of anticoagulants; I26.99 Other pulmonary embolism without acute cor pulmonale ==

== ENCOUNTER 2024-12-25 08:05 | Outpatient (RCR) | payer MEDICARE, SELFPAY | END 2024-12-27 10:12 | disposition home or self-care (01) | LOC: MM 08:05 | PROVIDERS: PCP Nurse Practitioner Family; Visit Provider Internal Medicine | DX: Z51.81 Encounter for therapeutic drug level monitoring (principal); Z79.01 Long term (current) use of anticoagulants ==